=== PATIENT | female | born 1965 | race Caucasian/White ===

== ENCOUNTER 2018-03-21 16:57 | Emergency (ER) | payer MEDICAID ==
[2018-03-21 17:04] VITALS: BP 130/94
--- NOTE | 2018-03-21 18:00 | ER Document Report ---
ED GI/ - General Chief Complaint: Nausea/Vomiting Stated Complaint: NAUSEA/VOMITING Time Seen by Provider: 03/21/18 17:34 Notes: This is a 52-year-old female patient to the emergency department who complains of dysphasia. States that this began around December. Having increasing difficulty swallowing. Was seen at another ER where she had a CT scan and workup performed which she states was unremarkable. Has not seen a specialist but was told that she would likely need an endoscopy. Presents here today for an endoscopy. States that she is able to tolerate liquids but having a hard time with solid foods. Patient has been smoking since she was 12. No other issues at this time. Denies any weight loss or weight gain. Denies any foreign body sensation in her throat at this time. - HPI Timing/Duration: Gradual - Related Data Allergies/Adverse Reactions: No Known Allergies Allergy (Unverified 03/21/18 16:59) Past Medical History - General Information source: Patient - Social History Smoking Status: Current Every Day Smoker Cigarette use (# per day): Yes Frequency of alcohol use: None Drug Abuse: None Lives with: Family Family History: Reviewed & Not Pertinent Patient has suicidal ideation: No Patient has homicidal ideation: No Pulmonary Medical History: Reports: Hx COPD Renal/ Medical History: Denies: Hx Peritoneal Dialysis Psychiatric Medical History: Reports: Hx Depression Review of Systems - Review of Systems Notes: Constitutional: denies: Chills, Diaphoresis, Fever, Malaise, Weakness EENT: denies: Eye discharge, Blurred vision, Tearing, Double vision, Nose congestion, Nose discharge, Throat swelling, Mouth pain Cardiovascular: denies: Palpitations, Heart racing, Orthopnea, Dyspnea, Chest pain Respiratory: denies: Cough, Hurts to breathe, Wheezing, Shortness of breath Gastrointestinal: denies: Abdominal pain, Diarrhea, Nausea, Vomiting, Black stools, bright red blood in stool. Does state that she has difficulty swallowing at times Genitourinary: denies: Burning, Dysuria, Discharge, Frequency, Flank pain, Hematuria Musculoskeletal: denies: Joint pain, Joint swelling, Muscle pain, Muscle stiffness, back pain Hematologic/Lymphatic: denies: Anemia, Easy bleeding, Easy bruising, Blood clots Neurological/Psychological: denies: Confusion, Dementia, Depression, Loss of consciousness Skin: No lesions, no masses, no skin breakdown, no abscesses Physical Exam - Vital signs Vitals: Temp Pulse Resp BP Pulse Ox 97.9 F 113 H 16 130/94 H 100 03/21/18 17:02 03/21/18 17:02 03/21/18 17:02 03/21/18 17:02 03/21/18 17:02 Interpretation: Normal Notes: Vital signs recorded this tachycardia have her physical exam while auscultating reveals a heart rate approximately 90. - General General appearance: Appears well, Alert - HEENT Head: Normocephalic, Atraumatic Eyes: Normal Pupils: PERRL - Respiratory Respiratory status: No respiratory distress Chest status: Nontender Breath sounds: Normal Chest palpation: Normal - Cardiovascular Rhythm: Regular Heart sounds: Normal auscultation Murmur: No - Abdominal Inspection: Normal Distension: No distension Bowel sounds: Normal Tenderness: Nontender Organomegaly: No organomegaly - Back Back: Normal, Nontender - Extremities General upper extremity: Normal inspection, Nontender, Normal color, Normal ROM , Normal temperature General lower extremity: Normal inspection, Nontender, Normal color, Normal ROM , Normal temperature, Normal weight bearing. No: Jeffrey's sign - Neurological Neuro grossly intact: Yes Cognition: Normal Orientation: AAOx4 Apryl Coma Scale Eye Opening: Spontaneous Apryl Coma Scale Verbal: Oriented Apryl Coma Scale Motor: Obeys Commands Apryl Coma Scale Total: 15 Speech: Normal Motor strength normal: LUE, RUE, LLE, RLE Sensory: Normal - Psychological Associated symptoms: Normal affect, Normal mood - Skin Skin Temperature: Warm Skin Moisture: Dry Skin Color: Normal Course - Re-evaluation Re-evalutation: 03/21/18 17:57 Symptoms have been present for several months. Obviously patient is tolerating p.o. at this time. We will give her follow-up information for general surgery as well as gastroenterology. Encouraged her if symptoms get worse to return during business hours so that we can get a barium swallow on her and possible consult. Patient is comfortable being discharged at this time and realizes that she may need to return if things get worse. Will discharge at this time in stable condition. - Vital Signs Vital signs: Temp Pulse Resp BP Pulse Ox 97.9 F 113 H 16 130/94 H 100 03/21/18 17:02 03/21/18 17:02 03/21/18 17:02 03/21/18 17:02 03/21/18 17:02 Discharge - Discharge Clinical Impression: Dysphasia Condition: Good Disposition: HOME, SELF-CARE Additional Instructions: You have been diagnosed with dysphasia which is also known as difficulty with swallowing. This condition will require further evaluation and treatment. Continue to drink liquids as this is usually easier to get down then solid foods. Things such as boost, Ensure, milk shakes, applesauce, Jell-O and pudding as well as broth are things you should try at this time. In the event that symptoms are getting worse and you are absolutely unable to keep any liquids down then please return to the emergency department. You have been given follow-up information for general surgeon as well as a installation supervisor. Please make an appointment immediately. Referrals: ELIAS DEWEY MD [ACTIVE STAFF] - Follow up as needed DENAE SAAB MD [ACTIVE STAFF] - 03/24/18
== END 2018-03-21 18:50 | disposition home or self-care (01) ==
LOC: ER 16:57
DX: R47.02 Dysphasia (principal); R13.10 Dysphagia, unspecified; F17.210 Nicotine dependence, cigarettes, uncomplicated
CPT/HCPCS: 99283

== ENCOUNTER 2018-12-04 23:34 | Observation (INO) | payer MEDICAID ==
[2018-12-04] MEDS ORDERED: QUETIAPINE FUMARATE 100 MG TABLET PO ONE (23:58)
[2018-12-04] MEDS ORDERED: DIAZEPAM 5 MG TABLET PO ONE (23:58)
--- NOTE | 2018-12-05 00:24 | ER Document Report ---
ED General - General Stated Complaint: ALTERED MENTAL STATUS Time Seen by Provider: 12/04/18 23:44 Primary Care Provider: LASHELL SANCHEZ MD [Primary Care Provider] - Follow up as needed Notes: Patient is a 53-year-old female who underwent an episode at home where the said he was sent with him and left the room to go get something from different house. He came back and when he came back she was laying in the chair slumped over and her lips were bluish in color. She was somewhat gurgling her speech and he says her face was dropped back. He says is not sure if it is really drooped or slumped however it seems as if it was "abnormal". He says he cannot tell if it was worse on one side versus the other. When paramedics arriv ed the patient was moving everything appropriately however was somewhat confused and not talking. By time the patient arrived to the ED she is awake alert and answering all questions appropriately moving all extremities without difficulty. Patient's says that she has been out of her psychiatric medications for 2 weeks. He says in the last week is noticed that she is been a little more q uiet and just not herself. Medications that she typically takes are Chlorpromazine 100mg daily, diazepam 10mg TID, Benotropine bid, buspirone 10mg daily, seroquel 400mg QHS. - Related Data Allergies/Adverse Reactions: No Known Allergies Allergy (Unverified 03/21/18 16:59) Past Medical History - Social History Smoking Status: Never Smoker Frequency of alcohol use: None Drug Abuse: None Family History: Reviewed & Not Pertinent Pulmonary Medical History: Reports: Hx COPD Renal/ Medical History: Denies: Hx Peritoneal Dialysis Psychiatric Medical History: Reports: Hx Depression Review of Systems - Review of Systems Notes: My Normal Review Basic REVIEW OF SYSTEMS: CONSTITUTIONAL : Denies fever, chills, or sweats. Denies recent illness. EENT: Denies eye, ear, throat, or mouth pain or symptoms. Denies nasal or sinus congestion. CARDIOVASCULAR: Denies chest pain. RESPIRATORY: Denies cough, cold, or chest congestion. Denies shortness of breath, difficulty breathing, or wheezing. GASTROINTESTINAL: Denies abdominal pain. Denies nausea, vomiting, or diarrhea. GENITOURINARY: Denies difficulty urinating, painful urination, burning, frequency, or blood in urine. MUSCULOSKELETAL: Denies neck or back pain or joint pain or swelling. SKIN: Denies rash or skin lesions. NEUROLOGICAL: episode of altered mental status and poorly responsiveness. PSYCHIATRIC: History of schizophrenia. ALL OTHER SYSTEMS REVIEWED AND NEGATIVE. Physical Exam - Notes Notes: General Appearance: Well nourished, alert, cooperative, no acute distress, no obvious discomfort. Vitals: reviewed, See vital signs table. Eyes: PERRL, EOMI, Conjuctiva clear Mouth: No decreasd moisture Throat: No tonsillar inflammation, No airway obstruction, No lymphadenopathy Neck: Supple, no neck tenderness, No thyromegaly Lungs: No wheezing, No rales, No rhonci, No accessory muscle use, good air exchange bilaterally. Heart: Normal rate, Regular rythm, No murmur, no rub Abdomen: Normal BS, soft, No rigidity, No abdominal tenderness, No guarding, no rebound, no abdominal masses, no organomegaly Extremities: strength 5/5 in all extremities, good pulses in all extremities, no swelling or tenderness in the extremities, no edema. Skin: warm, dry, appropriate color, no rash Neuro: speech clear, oriented x 3, normal affect, responds appropriately to questions. Cranial nerves II through XII are intact. Distal sensation intact. Patient was all extremities without difficulty. She is able to lift both arms off the bed holding against gravity for more than 5 seconds without difficulty. She is able to lift her legs off the bed and hold them against gravity than 5 seconds without difficulty. Normal coordination of movements. Answers all questions appropriately. Course - Re-evaluation Re-evalutation: 12/05/18 01:18 Nurse informed that the patient is now not talking. I into the room. She is somewhat slurring her words when she tries to talk and then will fall asleep. She does still have symmetric facial movement. She still able to lift arms and legs off the bed. She does not have any focal weakness. This was 30 minutes after she received the Valium. is adamant that this was a dose that she was on for the last time she had this Valium dose was 2 weeks ago. Signs are stable. We will continue to monitor her to watch for any progression or worsening. 12/05/18 02:11 Patient is still at the state where she will not really talk or communicate. She still follows commands but is somnolent. It would be odd for this to be completely related to Valium being that she is typically on 10 mg 3 times a day and she is also typically on other medications that are sedating in conjunction with the valium. I sat down and talked with her and told him that stroke is in the differential. I told him I am not convinced that she is having a stroke being that she does not have any other focal neurologic deficits. She still is able to raise her arms and raise her legs off the bed without difficulty. She still seems to understand and follow commands however she is somnolent in appearance. I informed him anytime we consider stroke we do have to consider thrombolytic therapy. I did explain to him what thrombolytic therapy is and did show him the AA diagram showing the outcome with thrombolytic therapy including the percentage of people that get relief of the symptoms as well as the possibility of bleeding on the brain. Patient says at this time he would rather not give that medication being that he does not want to take the chance of her receiving a medication that can potentially cause her harm especially when we do not know for sure if this is a stroke or not. We therefore will hold off on any thrombolytic therapy. We will admit the patient for observation and do further work-up. I did discuss the case with Dr. Jackson, hospitalist, who agrees to evaluate the patient for admission. She has an NIH stroke scale is 6 based on her mental status and inability to speak. 12/05/18 02:18 - Laboratory Result Diagrams: 12/05/18 00:26 12/05/18 00:26 Laboratory results interpreted by me: 12/05/18 12/05/18 00:26 00:26 RDW 17.6 H Plt Count 491 H Sodium 134.2 L Potassium 3.4 L BUN 6 L - EKG Interpretation by Me Additional EKG results interpreted by me: 12/05/18 00:23 EKG is reviewed and interpreted by me. EKG shows sinus rhythm with rate of [address] segment elevation or depression. No ischemic T wave inversions. FL interval, QRS duration, QT intervals are within normal range. No old EKG available for comparison. 12/05/18 00:24 Discharge - Discharge Clinical Impression: Altered mental status Qualifiers: Altered mental status type: unspecified Qualified Code(s): R41.82 - Altered mental status, unspecified Condition: Stable Disposition: ADMITTED OBSERVATION Admitting Provider: Manuel (Hospitalist) Unit Admitted: [facility] Referrals: LASHELL SANCHEZ MD [Primary Care Provider] - Follow up as needed
[2018-12-05 00:41] LABS: ABSOLUTE LYMPHOCYTES (AUTO) 1.4 10^3/uL (0.5-4.7); ABSOLUTE MONOCYTES (AUTO) 0.8 10^3/uL (0.1-1.4); ABSOLUTE NEUT (AUTO) 5.2 10^3/uL (1.7-8.2); BASOPHILS % (AUTO) 0.6 % (0-2); EOSINOPHILS % (AUTO) 0.6 % (0-6); HEMATOCRIT 39.5 % (36.0-47.0); HEMOGLOBIN 13.1 g/dL (12.0-15.5); LYMPHOCYTES % (AUTO) 19.2 % (13-45); MEAN CORPUSCULAR HEMOGLOBIN 28.3 pg (27.0-33.4); MEAN CORPUSCULAR HGB CONC 33.2 g/dL (32.0-36.0); MEAN CORPUSCULAR VOLUME 85 fl (80-97); MONOCYTES % (AUTO) 10.3 % (3-13); PLATELET COUNT 491 10^3/uL (150-450); RED BLOOD COUNT 4.64 10^6/uL (3.72-5.28); RED CELL DISTRIBUTION WIDTH 17.6 % (11.5-14.0); SEGMENTED NEUTROPHILS % (AUTO) 69.3 % (42-78); TOTAL CELLS COUNTED % (AUTO) 100 %; WHITE BLOOD COUNT 7.5 10^3/uL (4.0-10.5)
[2018-12-05 01:00] LABS: ALANINE AMINOTRANSFERASE 14 U/L (9-52); ALBUMIN 4.2 g/dL (3.5-5.0); ALKALINE PHOSPHATASE 66 U/L (38-126); ANION GAP 8 (5-19); ASPARTATE AMINO TRANSFERASE 15 U/L (14-36); BILIRUBIN,DIRECT 0.2 mg/dL (0.0-0.4); BILIRUBIN,TOTAL 0.3 mg/dL (0.2-1.3); BLOOD UREA NITROGEN 6 mg/dL (7-20); CALCIUM 9.5 mg/dL (8.4-10.2); CARBON DIOXIDE 27 mmol/L (22-30); CHLORIDE 99 mmol/L (98-107); GLUCOSE 106 mg/dL (75-110); POTASSIUM 3.4 mmol/L (3.6-5.0); TOTAL PROTEIN 6.8 g/dL (6.3-8.2)
--- NOTE | 2018-12-05 01:13 | RADIOLOGY REPORT (SQ) ---
CT HEAD WITHOUT IV CONTRAST EXAM DATE: 12/04/2018 11:57 PM CDT HISTORY: Episode of altered mental status. COMPARISON: None. TECHNIQUE: CT scan of the brain without IV contrast. This exam was performed according to our departmental dose-optimization program, which includes automated exposure control, adjustment of the mA and/or kV according to patient size and/or use of iterative reconstruction technique. FINDINGS: The ventricles, cisterns, and sulci are age-appropriate. No evidence of acute infarction, intracranial hemorrhage, extra-axial fluid collection, or midline shift. No air-fluid levels are seen in the paranasal sinuses to suggest acute sinusitis. No depressed skull fracture. IMPRESSION: No acute intracranial findings.
[2018-12-05] MEDS ORDERED: DOCUSATE SODIUM 100 MG CAPSULE PO PRN (02:11)
--- NOTE | 2018-12-05 02:18 | ER Document Report ---
ED NIH Stroke Scale - NIH Stroke Scale *: 1. NIH scale should be completed with appropriate accompanying assessment tools. *: 2. The NIH should reflect what the patient is capable of doing and should not be coached by the clinician. 1a. Level of Consciousness: 0=Alert;keenly responsive -: 1=Drowsy -: 2=Obtunded -: 3=Coma/unresponsive or reflex to noxious stimuli. 1a. Responses: 1 1b. Orientation Questions: a. What month is it? -: b. How old are you? -: 0=Answers both questions correctly. -: 1=Answers one question correctly or patient is intubated or has orotracheal trauma. -: 2=Answers neither question correctly. 1b. Responses: 1 1c. Response to commands: a. Open and close eyes? -: b. Advanced Practice Provider and release hand? -: Credit is given despite weakness. Demonstration of task is permitted. Substitute command if hands cannot be used. -: 0=Performs both tasks correctly -: 1=Performs one task correctly -: 2=Performs neither task correctly 1c. Responses: 0 2. Gaze: Establish eye contact and instruct patient to "Follow my finger" -: 0=Normal -: 1=Partial gaze palsy. Gaze is abnormal in one or both eyes, but where forced deviation or total gaze paresis is not present. -: 2=Forced deviation or total gaze paresis. 2. Responses: 0 3. Visual Santos: Sees fingers in all four quadrants. -: 0=No visual loss. -: 1=Partial hemianopsia. -: 2=Complete hemianopsia. -: 3=Bilateral hemianopsia (including Cortical blindness) 3. Responses: 0 4. Facial Movement: Instruct patient to: -: a. Show me your teeth -: b. Raise your eyebrows -: c. Close your eyes -: d. Smile -: 0=Normal symmetrical movement -: 1=Minor paralysis (flattened nasolabial fold, asymmetry on smiling). -: 2=Partial paralysis (total or near total paralysis of lower face). -: 3=Complete paralysis of upper and lower face 4. Responses: 0 5. Motor functions (left arm): Alternate sides and extend each arm with palms down (90 degrees if sitting or 45 degrees for supine). -: 0=No drift;limb holds for full 10 seconds. -: 1=Drift; limb holds but drifts down before full 10 seconds, but does not hit bed. -: 2=Some effort against gravity; limb cannot get to or maintain position. -: 3=No effort against gravity; limb falls. -: 4=No movement. -: UN=Amputation, joint fusion, explain in comments. 5. Responses (left arm): 0 5. Motor Functions (right arm): Alternate sides and extend each arm with palms down (90 degrees if sitting or 45 degrees for supine). -: 0=No drift;limb holds for full 10 seconds. -: 1=Drift; limb holds but drifts down before full 10 seconds, but does not hit bed. -: 2=Some effort against gravity; limb cannot get to or maintain position. -: 3=No effort against gravity; limb falls. -: 4=No movement. -: UN=Amputation, joint fusion, explain in comments. 5. Responses (right arm): 0 6. Motor Functions (left leg): With patient lying supine, alternate sides and extend each leg (30 degrees always while supine). -: 0=No drift, leg holds position for full 5 seconds -: 1=Drift; leg falls before full 5 seconds but does not hit bed. -: 2=Some effort against gravity, leg falls to bed but some effort against gravity. -: 3=No effort against gravity, leg falls to bed immediately. -: 4=No movement. -: UN=Amputation, joint fusion; explain in comments. 6. Responses (left leg): 0 6. Motor Functions (right leg): With patient lying supine, alternate sides and extend each leg (30 degrees always while supine). -: 0=No drift, leg holds position for full 5 seconds -: 1=Drift; leg falls before full 5 seconds but does not hit bed. -: 2=Some effort against gravity, leg falls to bed but some effort against gravity. -: 3=No effort against gravity, leg falls to bed immediately. -: 4=No movement. -: UN=Amputation, joint fusion; explain in comments. 6. Responses (right leg): 0 7. Limb Ataxia: With eyes open instruct patient to: -: a. "Touch your finger to your nose". -: b. "Touch your heel to your buck" -: 0=Absent -: 1=Present in one limb. -: 2=Present in two limbs. -: UN=Amputation or joint fusion; explain in comments. 7. Responses: 0 8. Sensory: Test sensation using pinprick or noxious stimuli. Test as many body parts as possible. -: 0=Normal;no sensory loss -: 1=Mile to moderate sensory loss (patient feels pin prick but is less sharp on affected side). -: 2=Severe or total sensory loss. 8. Responses: 0 9. Best Language: Instruct patient to: -: a. "Describe what you see in this picture." -: b. "Name the items in this picture." -: c. "Read these sentences." -: 0=No aphasia, normal -: 1=Mild to moderate aphasia. -: 2=Severe aphasia -: 3=Mute, global aphasia, no usable speech or auditory comprehension. 9. Responses: 2 10. Articulation, Dysarthia: Instruct patient to: -: "Read these words" or "Repeat these words" -: 0=Normal -: 1=Mild to moderate; patient may slur some words but can be understood without difficulty. -: 2=Severe; patients speech so slurred as to be unintelligible in the absence of dysphasia. -: UN=Intubated or other physical barrier, explain in comments. 10. Responses: 2 11. Extinction or inattention: 0=No abnormality -: 1= Visual, tactile, auditory, spatial, or personal inattention or extinction to bilateral simulation in one or the sensory modalities. -: 2=Profound donovan-inattention or donovan-inattention to more than one modality; does not recognize own hand. 11. Responses: 0 Total Score: 6
[2018-12-05] MEDS ORDERED: ASPIRIN 325 MG TABLET, ENT COATED PO ONE (02:45)
[2018-12-05] MEDS ORDERED: ATORVASTATIN CALCIUM 40 MG TABLET PO ONE (02:45)
[2018-12-05] MEDS: POTASSI CL 20 MEQ/50 ML RIDER 20 MEQ/50 ML RTUPB IV SCH ×2 (03:09→05:17)
[2018-12-05] MEDS: HEPARIN SOD (PORCINE) 5,000 UNIT/ML 1 ML VIAL SUBCUT SCH ×3 (05:18→21:15)
--- NOTE | 2018-12-05 06:50 | PDOC H&P ---
History of Present Illness Admission Date/PCP: 12/05/18 03:07 LASHELL SANCHEZ MD Patient complains of: Altered mental status History of Present Illness: KUN LEONE is a 53 year old female with an unclear past medical history thought to include COPD, tobacco, bipolar depression who was discharged from [place] October 2018 without medications for at least 14 days. History is obtained by emergency room provider and records as patient is nonverbal and fami ly is no longer at bedside. Patient was noted by her spouse to be poorly responsive, nonverbal and cyanotic initiating 2 minutes of CPR, EMS reports the patient initially combative but persistently nonverbal and appeared confused. In the emergency room she is awake and alert and intermittently answering questions and following commands. Patient receives Seroquel, Valium and referred to the hospitalist for admission for concern of CVA versus TIA with aphasia Past Medical History Pulmonary Medical History: Reports: Chronic Obstructive Pulmonary Disease (COPD) Psychiatric Medical History: Reports: Depression Past Surgical History Past Surgical History: Reports: None Social History Information Source: [facility] Records Lives with: Spouse/Significant other Smoking Status: Current Every Day Smoker Cigarettes Packs Per Day: 1 Number of Years Smokin Frequency of Alcohol Use: Occasional Hx Recreational Drug Use: No Hx Prescription Drug Abuse: No - Advance Directive Resuscitation Status: Full Code Family History Family History: Hypertension Parental Family History Reviewed: No - Unobtainable Children Family History Reviewed: No - Unobtainable Sibling(s) Family History Reviewed.: No - Unobtainable Medication/Allergy Allergies/Adverse Reactions: No Known Allergies Allergy (Unverified 03/21/18 16:59) Review of Systems ROS unobtainable: Due to mental status Physical Exam Vital Signs: Temp Pulse Resp BP Pulse Ox 97.3 F 89 18 147/97 H 99 12/05/18 05:12 12/05/18 06:00 12/05/18 06:00 12/05/18 06:00 12/05/18 06:00 Intake & Output 12/03/18 12/04/18 12/05/18 11:59 11:59 11:59 Intake Total 50 Output Total 0 Balance 50 Weight 61 kg General appearance: PRESENT: no acute distress, cooperative, disheveled, well- developed, well-nourished Head exam: PRESENT: atraumatic, normocephalic Eye exam: PRESENT: conjunctiva pink, EOMI, PERRLA. ABSENT: scleral icterus Ear exam: PRESENT: normal external ear exam Mouth exam: PRESENT: moist, tongue midline Neck exam: ABSENT: carotid bruit, JVD, lymphadenopathy, thyromegaly Respiratory exam: PRESENT: clear to auscultation jamrai. ABSENT: rales, rhonchi, wheezes Cardiovascular exam: PRESENT: RRR. ABSENT: diastolic murmur, rubs, systolic murmur Pulses: PRESENT: normal dorsalis pedis pul Vascular exam: PRESENT: normal capillary refill GI/Abdominal exam: PRESENT: normal bowel sounds, soft. ABSENT: distended, guarding, mass, organolmegaly, rebound, tenderness Rectal exam: PRESENT: deferred Extremities exam: PRESENT: full ROM. ABSENT: calf tenderness, clubbing, pedal edema Neurological exam: PRESENT: alert, awake, oriented to person, oriented to situation, CN II-XII grossly intact, aphasic. ABSENT: motor sensory deficit Psychiatric exam: PRESENT: flat affect, unusual affect Focused psych exam: PRESENT: other Skin exam: PRESENT: dry, intact, warm. ABSENT: cyanosis, rash Results Laboratory Results: 12/05/18 00:26 12/05/18 00:26 12/05/18 12/05/18 12/05/18 00:26 00:26 00:26 WBC 7.5 RBC 4.64 Hgb 13.1 Hct 39.5 MCV 85 MCH 28.3 MCHC 33.2 RDW 17.6 H Plt Count 491 H Seg Neutrophils % 69.3 Lymphocytes % 19.2 Monocytes % 10.3 Eosinophils % 0.6 Basophils % 0.6 Absolute Neutrophils 5.2 Absolute Lymphocytes 1.4 Absolute Monocytes 0.8 Absolute Eosinophils 0.0 Absolute Basophils 0.0 Sodium 134.2 L Potassium 3.4 L Chloride 99 Carbon Dioxide 27 Anion Gap 8 BUN 6 L Creatinine 0.55 Est GFR ( Amer) > 60 Est GFR (Non-Af Amer) > 60 Glucose 106 Calcium 9.5 Magnesium 1.9 Total Bilirubin 0.3 AST 15 ALT 14 Alkaline Phosphatase 66 Total Protein 6.8 Albumin 4.2 TSH 12/05/18 00:26 WBC RBC Hgb Hct MCV MCH MCHC RDW Plt Count Seg Neutrophils % Lymphocytes % Monocytes % Eosinophils % Basophils % Absolute Neutrophils Absolute Lymphocytes Absolute Monocytes Absolute Eosinophils Absolute Basophils Sodium Potassium Chloride Carbon Dioxide Anion Gap BUN Creatinine Est GFR ( Amer) Est GFR (Non-Af Amer) Glucose Calcium Magnesium Total Bilirubin AST ALT Alkaline Phosphatase Total Protein Albumin TSH 2.08 12/05/18 00:26 Troponin I < 0.012 Impressions: Head CT 12/04/18 23:57 IMPRESSION: No acute intracranial findings. Assessment and Plan - Diagnosis (1) Aphasia Is this a current diagnosis for this admission?: Yes Plan: Likely secondary to psychiatric decompensation with medication noncompliance. H owever no improvement with trial of home medications, CVA care set deployed. (2) Altered mental status Qualifiers: Altered mental status type: unspecified Qualified Code(s): R41.82 - Altered mental status, unspecified Is this a current diagnosis for this admission?: Yes Plan: Please see #1, follow-up TSH, urine drug screen, mental health consult (3) Hypokalemia Is this a current diagnosis for this admission?: Yes Plan: Potassium repletion follow-up magnesium level. - Time Time Spent with patient: 25-34 minutes - Inpatient Certification Medical Necessity: Need Close Monitoring Due to Risk of Patient Decompensation
[2018-12-05 07:59] LABS: ABSOLUTE BASOPHILS # (AUTO) 0.1 10^3/uL (0.0-0.2); ABSOLUTE EOSINOPHILS # (AUTO) 0.1 10^3/uL (0.0-0.6); ABSOLUTE LYMPHOCYTES (AUTO) 2.3 10^3/uL (0.5-4.7); ABSOLUTE MONOCYTES (AUTO) 0.8 10^3/uL (0.1-1.4); ABSOLUTE NEUT (AUTO) 5.6 10^3/uL (1.7-8.2); BASOPHILS % (AUTO) 0.6 % (0-2); EOSINOPHILS % (AUTO) 1.4 % (0-6); HEMATOCRIT 40.1 % (36.0-47.0); HEMOGLOBIN 13.1 g/dL (12.0-15.5); LYMPHOCYTES % (AUTO) 25.7 % (13-45); MEAN CORPUSCULAR HEMOGLOBIN 28.1 pg (27.0-33.4); MEAN CORPUSCULAR HGB CONC 32.7 g/dL (32.0-36.0); MEAN CORPUSCULAR VOLUME 86 fl (80-97); MONOCYTES % (AUTO) 9.2 % (3-13); PLATELET COUNT 391 10^3/uL (150-450); RED BLOOD COUNT 4.66 10^6/uL (3.72-5.28); RED CELL DISTRIBUTION WIDTH 17.6 % (11.5-14.0); SEGMENTED NEUTROPHILS % (AUTO) 63.1 % (42-78); TOTAL CELLS COUNTED % (AUTO) 100 %; WHITE BLOOD COUNT 8.8 10^3/uL (4.0-10.5)
[2018-12-05] MEDS: NICOTINE 21 MG/24 HR PATCH.TD24 TD SCH (10:11)
--- NOTE | 2018-12-05 12:21 | RADIOLOGY REPORT (SQ) ---
EXAM DESCRIPTION: CAROTID DOPPLER COMPLETED DATE/TIME: 12/05/2018 11:58 am REASON FOR STUDY: tia COMPARISON: None. TECHNIQUE: Grayscale ultrasound, Doppler velocity and spectra, and color Doppler images acquired of the extra-cranial carotid and vertebral arteries. Images stored on PACS. LIMITATIONS: None. FINDINGS: RIGHT CAROTID CCA Velocities: Within normal limits. ICA Velocities Peak systolic 0.44 m/s. End diastolic 0.18 m/s. Proximal ICA/CCA peak systolic ratio 1.35. Spectra normal. No significant plaque. LEFT CAROTID CCA Velocities: Within normal limits. ICA Velocities Peak systolic 0.44 m/s. End diastolic 0.20 m/s. Proximal ICA/CCA peak systolic ratio 1.83. Plaque involving the bifurcation VERTEBRAL ARTERIES: Antegrade flow. Normal waveforms. SUBCLAVIAN ARTERIES: No finding. OTHER: No other significant finding. IMPRESSION: NO HEMODYNAMICALLY SIGNIFICANT STENOSIS. COMMENT: Quality ID #[id number]: Velocity criteria are extrapolated from the diameter data as defined by t he Society of Radiologists in Ultrasound Consensus Conference. Radiology 2003: 229; 340-346. TECHNICAL DOCUMENTATION: JOB ID: [id number] [employer]- All Rights Reserved Reading location - IP/workstation name: [email or web address]
--- NOTE | 2018-12-05 13:42 | RADIOLOGY REPORT (SQ) ---
EXAM DESCRIPTION: MRI HEAD WITHOUT COMPLETED DATE/TIME: 12/05/2018 11:31 am REASON FOR STUDY: tia COMPARISON: CT brain 12/05/2018 TECHNIQUE: Multiplanar imaging includes non-contrasted T1, T2, FLAIR, and diffusion with ADC map seq uences. Images stored on PACS. LIMITATIONS: None. FINDINGS: ANATOMY: No anomalies. Normal vascular flow voids. Pituitary fossa normal. CSF SPACES: Normal in size and contour. No hemorrhage. CEREBRUM: Sulci and gyri normal in size and contour. Normal white matter signal on FLAIR imaging. No evidence of hemorrhage, mass, or extraaxial fluid collection. POSTERIOR FOSSA: No signal alteration. No hemorrhage. No edema, masses or mass effect. Internal ariel tory canals, cerebello-pontine angles, mastoids normal. DIFFUSION IMAGING: Negative for acute or sub-acute infarction. ORBITS: No masses. Globes normal. PARANASAL SINUSES: No fluid levels. Mucosa normal. OTHER: No other significant finding. IMPRESSION: NORMAL MRI OF THE BRAIN WITHOUT INTRAVENOUS GADOLINIUM CONTRAST. EVIDENCE OF ACUTE STROKE: NO. TECHNICAL DOCUMENTATION: JOB ID: [id number] [employer]- All Rights Reserved Reading location - IP/workstation name: [email or web address]
--- NOTE | 2018-12-05 14:34 | EKG REPORT ---
SEVERITY:- ABNORMAL ECG - SINUS RHYTHM MICHAEL, CONSIDER BIATRIAL ABNORMALITIES : Confirmed by: Katherine Boykin MD 05-Dec-2018 14:33:28
[2018-12-05] MEDS ORDERED: POTASSIUM CHLORIDE 10 MEQ CAPSULE.ER PO ONE (18:00)
[2018-12-05] MEDS: NORMAL SALINE 1000 ML 1,000 ML IV PRN (18:53)
[2018-12-05] MEDS: DIAZEPAM 5 MG TABLET PO PRN (21:15)
[2018-12-05] MEDS ORDERED: QUETIAPINE FUMARATE 100 MG TABLET PO SCH (22:00)
[2018-12-05] MEDS ORDERED: ATORVASTATIN CALCIUM 40 MG TABLET PO SCH (22:00)
[2018-12-06] MEDS: ACETAMINOPHEN 325 MG TABLET PO PRN ×2 (04:20→11:51)
[2018-12-06 04:47] LABS: ABSOLUTE EOSINOPHILS # (AUTO) 0.1 10^3/uL (0.0-0.6); ABSOLUTE LYMPHOCYTES (AUTO) 2.1 10^3/uL (0.5-4.7); ABSOLUTE MONOCYTES (AUTO) 0.4 10^3/uL (0.1-1.4); ABSOLUTE NEUT (AUTO) 1.8 10^3/uL (1.7-8.2); BASOPHILS % (AUTO) 1.1 % (0-2); HEMATOCRIT 36.6 % (36.0-47.0); HEMOGLOBIN 11.9 g/dL (12.0-15.5); LYMPHOCYTES % (AUTO) 47.3 % (13-45); MEAN CORPUSCULAR HEMOGLOBIN 28.1 pg (27.0-33.4); MEAN CORPUSCULAR HGB CONC 32.6 g/dL (32.0-36.0); MEAN CORPUSCULAR VOLUME 86 fl (80-97); MONOCYTES % (AUTO) 9.2 % (3-13); PLATELET COUNT 328 10^3/uL (150-450); RED BLOOD COUNT 4.25 10^6/uL (3.72-5.28); RED CELL DISTRIBUTION WIDTH 17.6 % (11.5-14.0); SEGMENTED NEUTROPHILS % (AUTO) 40.4 % (42-78); TOTAL CELLS COUNTED % (AUTO) 100 %; WHITE BLOOD COUNT 4.5 10^3/uL (4.0-10.5)
[2018-12-06 05:05] LABS: ANION GAP 5 (5-19); BLOOD UREA NITROGEN 12 mg/dL (7-20); CALCIUM 8.9 mg/dL (8.4-10.2); CARBON DIOXIDE 28 mmol/L (22-30); CHLORIDE 108 mmol/L (98-107); GLUCOSE 88 mg/dL (75-110); POTASSIUM 3.7 mmol/L (3.6-5.0); TRIGLYCERIDES 148 mg/dL (<150)
[2018-12-06 05:16] LABS: DIRECT LDL 116 mg/dL (<100)
[2018-12-06] MEDS: HEPARIN SOD (PORCINE) 5,000 UNIT/ML 1 ML VIAL SUBCUT SCH ×2 (05:19→13:15)
[2018-12-06 05:21] LABS: URINE AMPHETAMINES SCREEN NEGATIVE; URINE BARBITURATES SCREEN NEGATIVE; URINE COCAINE SCREEN NEGATIVE; URINE METHADONE SCREEN NEGATIVE; URINE PHENCYCLIDINE SCREEN NEGATIVE
[2018-12-06 05:23] LABS: URINE MARIJUANA (THC) SCREEN NEGATIVE
[2018-12-06 05:26] LABS: URINE BENZODIAZEPINES SCREEN UNCONFIRMED POSITIVE
[2018-12-06] MEDS: DIAZEPAM 5 MG TABLET PO PRN (08:05)
[2018-12-06] MEDS ORDERED: GABAPENTIN 300 MG CAPSULE PO ONE (09:00)
[2018-12-06] MEDS ORDERED: ASPIRIN 325 MG TABLET, ENT COATED PO SCH (10:00)
[2018-12-06] MEDS: BUSPIRONE HCL 10 MG TABLET PO SCH ×2 (10:01→17:10)
[2018-12-06] MEDS: BENZTROPINE MESYLATE 1 MG TABLET PO SCH ×2 (10:01→17:10)
[2018-12-06] MEDS: NICOTINE 21 MG/24 HR PATCH.TD24 TD SCH (10:04)
[2018-12-06] MEDS: CHLORPROMAZINE HCL 50 MG TABLET PO SCH ×2 (10:04→17:11)
[2018-12-06] MEDS: NORMAL SALINE 1000 ML 1,000 ML IV PRN (13:04)
[2018-12-06 15:53] VITALS: BP 138/86
--- NOTE | 2018-12-06 18:43 | PDOC DISCHARGE SUMMARY ---
General - Admit/Disc Date/PCP Admission Date/Primary Care Provider: 12/05/18 03:07 LASHELL SANCHEZ MD Discharge Date: 12/06/18 - Discharge Diagnosis (1) TIA (transient ischemic attack) Is this a current diagnosis for this admission?: Yes (2) Altered mental status Is this a current diagnosis for this admission?: Yes (3) Aphasia Is this a current diagnosis for this admission?: Yes - Additional Information Resuscitation Status: Full Code Discharge Diet: As Tolerated Discharge Activity: Activity As Tolerated, Balance Activity w/Rest Prescriptions: Aspirin [Aspir-Low] 81 mg PO DAILY #30 tablet. Atorvastatin Calcium [Lipitor 40 mg Tablet] 40 mg PO QHS #30 tablet Benztropine Mesylate [Cogentin 1 mg Tablet] 1 tab PO BID #60 tablet Chlorpromazine HCl [Thorazine 50 mg Tablet] 50 mg PO BID #60 tablet Diazepam [Valium 5 mg Tablet] 5 mg PO BIDP PRN #10 tablet PRN Reason: INCREASED ANXIOUSNESS Quetiapine Fumarate [Seroquel] 300 mg PO QHS #30 tablet Home Medications: Aspirin [Aspir-Low] 81 mg PO DAILY #30 tablet. 12/06/18 Atorvastatin Calcium [Lipitor 40 mg Tablet] 40 mg PO QHS #30 tablet 12/06/18 Benztropine Mesylate [Cogentin 1 mg Tablet] 1 tab PO BID #60 tablet 12/06/18 Buspirone HCl [Buspar 10 mg Tablet] 10 mg PO BID #60 12/06/18 Chlorpromazine HCl [Thorazine 50 mg Tablet] 50 mg PO BID #60 tablet 12/06/18 Diazepam [Valium 5 mg Tablet] 5 mg PO BIDP PRN #10 tablet 12/06/18 Quetiapine Fumarate [Seroquel] 300 mg PO QHS #30 tablet 12/06/18 History of Present Illness History of Present Illness: Admitting hospitalist's H&P: KUN LEONE is a 53 year old female with an unclear past medical history thought to include COPD, tobacco, bipolar depression who was discharged from [place] October 2018 without medications for at least 14 days. History is obtained by emergency room provider and records as patient is nonverbal and family is no longer at bedside. Patient was noted by her spouse to be poorly responsive, nonverbal and cyanotic initiating 2 minutes of CPR, EMS reports the patient initially combative but persistently nonverbal and appeared confused. In the emergency room she is awake and alert and intermittently answering questions and following commands. Patient receives Ciara Valium and referred to the hospitalist for admission for concern of CVA versus TIA with aphasia Hospital Course Hospital Course: This is a 53-year-old female with past medical history of bipolar disorder who has not been on her previous psych medication regimen who was brought in because of unresponsiveness at home. Patient was admitted for possible TIA. She had an MRI which was normal. Her carotid Dopplers were also negative. Upon encounter a few hours after admis chris, patient was already back to her baseline. She was oriented x4. She has appropriate affect and she tells me that the last woman she remembered is that she was watching TV and suddenly had a difficult time altering words. She said that she was able to understand people in the ER but was not able to find words or not able to verbalize. He does not have any neurologic deficit on day of discharge. She was treated for possible TIA but and was started on aspirin and statin. Psych also saw the patient who recommended continuing her on her previous medications. Physical Exam Vital Signs: Temp Pulse Resp BP Pulse Ox 97.7 F 105 H 18 138/86 H 99 12/06/18 15:24 12/06/18 15:24 12/06/18 15:24 12/06/18 15:24 12/06/18 15:24 Intake & Output 12/05/18 12/06/18 12/07/18 06:59 06:59 06:59 Intake Total 50 610 1149 Output Total 0 300 Balance 50 310 1149 Weight 134 lb 7.712 oz 136 lb 3.931 oz General appearance: PRESENT: no acute distress, well-developed, well-nourished Head exam: PRESENT: atraumatic, normocephalic Eye exam: PRESENT: conjunctiva pink, EOMI, PERRLA. ABSENT: scleral icterus Ear exam: PRESENT: normal external ear exam Mouth exam: PRESENT: moist, tongue midline Neck exam: ABSENT: carotid bruit, JVD, lymphadenopathy, thyromegaly Respiratory exam: PRESENT: clear to auscultation jamari. ABSENT: rales, rhonchi, wheezes Cardiovascular exam: PRESENT: RRR. ABSENT: diastolic murmur, rubs, systolic murmur Pulses: PRESENT: normal dorsalis pedis pul GI/Abdominal exam: PRESENT: normal bowel sounds, soft. ABSENT: distended, g uarding, mass, organolmegaly, rebound, tenderness Rectal exam: PRESENT: deferred Extremities exam: PRESENT: full ROM. ABSENT: calf tenderness, clubbing, pedal edema Neurological exam: PRESENT: alert, awake, oriented to person, oriented to place, oriented to time, oriented to situation, CN II-XII grossly intact. ABSENT: mo tor sensory deficit Results Laboratory Results: 12/06/18 04:16 12/06/18 04:16 12/06/18 12/06/18 04:16 04:16 WBC 4.5 RBC 4.25 Hgb 11.9 L Hct 36.6 MCV 86 MCH 28.1 MCHC 32.6 RDW 17.6 H Plt Count 328 Seg Neutrophils % 40.4 L Lymphocytes % 47.3 H Monocytes % 9.2 Eosinophils % 2.0 Basophils % 1.1 Absolute Neutrophils 1.8 Absolute Lymphocytes 2.1 Absolute Monocytes 0.4 Absolute Eosinophils 0.1 Absolute Basophils 0.0 Sodium 141.2 Potassium 3.7 Chloride 108 H Carbon Dioxide 28 Anion Gap 5 BUN 12 Creatinine 0.63 Est GFR ( Amer) > 60 Est GFR (Non-Af Amer) > 60 Glucose 88 Calcium 8.9 Triglycerides 148 Cholesterol 174.70 LDL Cholesterol Direct 116 H VLDL Cholesterol 30.0 HDL Cholesterol 52 12/05/18 00:26 Troponin I < 0.012 Impressions: Head CT 12/04/18 23:57 IMPRESSION: No acute intracranial findings. Head MRI 12/05/18 00:00 IMPRESSION: NORMAL MRI OF THE BRAIN WITHOUT INTRAVENOUS GADOLINIUM CONTRAST. EVIDENCE OF ACUTE STROKE: NO. Carotid Doppler Study 12/05/18 02:12 IMPRESSION: NO HEMODYNAMICALLY SIGNIFICANT STENOSIS. Qualifiers - * PATIENT BEING DISCHARGED WITH ANY OF THE FOLLOWING DIAGNOSIS: No Acute Heart Failure - Is this a Heart Failure Patient?: No LVEF < 40%?: No- if no continue to question #3 3. Anticoagulant therapy for permanect/persistent/paraoxysmal Afib or Aflutter: N/A
== END 2018-12-06 17:55 | disposition home or self-care (01) ==
LOC: ER 23:34 → EH 12-05 03:07 → 3W 12-05 05:00
PROVIDERS: ADMIT Internal Medicine; ATTEND Internal Medicine
DX: G45.9 Transient cerebral ischemic attack, unspecified (principal); R41.82 Altered mental status, unspecified; R47.01 Aphasia; E87.6 Hypokalemia; R23.0 Cyanosis; F31.9 Bipolar disorder, unspecified; F20.9 Schizophrenia, unspecified; F17.210 Nicotine dependence, cigarettes, uncomplicated; Z79.82 Long term (current) use of aspirin; Z79.899 Other long term (current) drug therapy; Z82.49 Family history of ischemic heart disease and other diseases of the circulatory system; R29.706 NIHSS score 6
CPT/HCPCS: 93005; 99285; 96365; 96366; 36415 ×2; 83735; 84443; 85025 ×2; 80048; 80053; 84484; 80307; 83036; 80061; 93880; 70551; 70450; 93010; G0378 ×3; J3490 ×11; J1644 ×2; J3480; J7030 ×2

== ENCOUNTER 2019-02-25 23:43 | Emergency (ER) | payer MEDICAID ==
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
[2019-02-26 00:31] LABS: ABSOLUTE BASOPHILS # (AUTO) 0.1 10^3/uL (0.0-0.2); ABSOLUTE EOSINOPHILS # (AUTO) 0.1 10^3/uL (0.0-0.6); ABSOLUTE LYMPHOCYTES (AUTO) 2.6 10^3/uL (0.5-4.7); ABSOLUTE MONOCYTES (AUTO) 0.7 10^3/uL (0.1-1.4); ABSOLUTE NEUT (AUTO) 5.5 10^3/uL (1.7-8.2); EOSINOPHILS % (AUTO) 0.9 % (0-6); HEMATOCRIT 48.7 % (36.0-47.0); HEMOGLOBIN 15.9 g/dL (12.0-15.5); LYMPHOCYTES % (AUTO) 28.4 % (13-45); MEAN CORPUSCULAR HEMOGLOBIN 28.5 pg (27.0-33.4); MEAN CORPUSCULAR HGB CONC 32.6 g/dL (32.0-36.0); MEAN CORPUSCULAR VOLUME 88 fl (80-97); MONOCYTES % (AUTO) 7.9 % (3-13); PLATELET COUNT 268 10^3/uL (150-450); RED BLOOD COUNT 5.57 10^6/uL (3.72-5.28); RED CELL DISTRIBUTION WIDTH 18.2 % (11.5-14.0); SEGMENTED NEUTROPHILS % (AUTO) 61.8 % (42-78); TOTAL CELLS COUNTED % (AUTO) 100 %
[2019-02-26 00:49] LABS: ALBUMIN 4.7 g/dL (3.5-5.0); ALKALINE PHOSPHATASE 60 U/L (38-126); ANION GAP 16 (5-19); ASPARTATE AMINO TRANSFERASE 20 U/L (14-36); BILIRUBIN,DIRECT 0.1 mg/dL (0.0-0.4); BILIRUBIN,TOTAL 0.4 mg/dL (0.2-1.3); BLOOD UREA NITROGEN 14 mg/dL (7-20); CALCIUM 9.9 mg/dL (8.4-10.2); CARBON DIOXIDE 24 mmol/L (22-30); CHLORIDE 97 mmol/L (98-107); GLUCOSE 127 mg/dL (75-110); POTASSIUM 3.3 mmol/L (3.6-5.0); TOTAL PROTEIN 7.3 g/dL (6.3-8.2)
[2019-02-26 00:50] LABS: ACETAMINOPHEN < 10 ug/mL (10-30); ALCOHOL < 10 mg/dL (NONE DETECTED)
[2019-02-26 01:02] LABS: SALICYLATE 22.2 mg/dL (2.0-20.0)
[2019-02-26] MEDS ORDERED: NORMAL SALINE 1000 ML 1,000 ML IV ONE (01:18)
[2019-02-26] MEDS ORDERED: POTASSIUM CHLORIDE 10 MEQ CAPSULE.ER PO ONE (01:19)
[2019-02-26] MEDS ORDERED: LORAZEPAM 0.5 MG TABLET PO ONE (01:19)
[2019-02-26] MEDS ORDERED: HALOPERIDOL 5 MG TABLET PO ONE (04:53)
[2019-02-26] MEDS ORDERED: NICOTINE 14 MG/24 HR PATCH.TD24 TD ONE (06:16)
[2019-02-26 06:34] LABS: APPEARANCE,URINE CLOUDY; BILIRUBIN,URINE MODERATE (NEGATIVE); GLUCOSE, URINE NEGATIVE (NEGATIVE); KETONES,URINE 20 mg/dL (NEGATIVE); LEUKOCYTE ESTERASE,URINE NEGATIVE (NEGATIVE); NITRITE,URINE NEGATIVE (NEGATIVE); PROTEIN,URINE 100 mg/dL (NEGATIVE); URINE SPECIFIC GRAVITY 1.036
[2019-02-26 06:35] LABS: COLOR,URINE BROWN
[2019-02-26 06:46] LABS: URINE AMPHETAMINES SCREEN NEGATIVE; URINE BARBITURATES SCREEN NEGATIVE; URINE BENZODIAZEPINES SCREEN NEGATIVE; URINE COCAINE SCREEN NEGATIVE; URINE MARIJUANA (THC) SCREEN NEGATIVE; URINE METHADONE SCREEN NEGATIVE; URINE PHENCYCLIDINE SCREEN NEGATIVE
[2019-02-26] MEDS ORDERED: ONDANSETRON 4 MG TAB.RAPDIS PO ONE ×2 (09:47→13:55)
[2019-02-26] MEDS ORDERED: OLANZAPINE 5 MG TABLET PO ONE (14:37)
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
[2019-02-26 17:29] VITALS: BP 115/70
--- NOTE | 2019-02-26 20:19 | EKG REPORT ---
SEVERITY:- ABNORMAL ECG - SINUS TACHYCARDIA RIGHT ATRIAL ABNORMALITY : Confirmed by: Katherine Boykin MD 26-Feb-2019 20:18:53
== END 2019-02-26 17:45 | disposition other institution (70) ==
LOC: ER 23:43
DX: Z04.6 Encounter for general psychiatric examination, requested by authority (principal); F20.9 Schizophrenia, unspecified; Z91.14 Patient's other noncompliance with medication regimen; E87.6 Hypokalemia; F41.9 Anxiety disorder, unspecified; M54.9 Dorsalgia, unspecified; M79.606 Pain in leg, unspecified; Z79.899 Other long term (current) drug therapy; R89.8 Other abnormal findings in specimens from other organs, systems and tissues; R45.6 Violent behavior; F17.200 Nicotine dependence, unspecified, uncomplicated; J44.9 Chronic obstructive pulmonary disease, unspecified; R00.0 Tachycardia, unspecified
CPT/HCPCS: 93005; 99285; 96360; 36415; 80307 ×4; 83735; 85025; 80053; 81001; 93010; S0119; J3490 ×3; J7030

== ENCOUNTER 2019-04-28 16:51 | Emergency (ER) | payer MEDICAID ==
[2019-04-28 17:00] VITALS: BP 132/93
[2019-04-28] MEDS ORDERED: KETOROLAC TROMETHAMINE 60 MG/2 ML SDV IM ONE (17:36)
[2019-04-28] MEDS ORDERED: IPRATROPIUM/ALBUTEROL 0.5-2.5 MG/3 ML AMPUL NEB ONE (17:36)
--- NOTE | 2019-04-28 17:37 | ER Document Report ---
ED Flu Like - General Chief Complaint: Pain All Over Stated Complaint: FLU SYMPTOMS Time Seen by Provider: 04/28/19 17:32 Primary Care Provider: [facility] [Provider Group] - Follow up in 1 week TRAVEL OUTSIDE OF THE U.S. IN LAST 30 DAYS: No - HPI Notes: 54-year-old female to the emergency department with complaints of fever, cough, congestion, body aches for the past 2 to 3 days. She states that her temp has been 100.9. She states she has a history of bronchitis and when she gets that she gets very sick. She states that she wanted to be seen so that she could avoid getting bronchitis. She is a smoker. She denies any chest pain, nausea, vomiting, diarrhea. She did not get a flu shot this season. - Related Data Allergies/Adverse Reactions: No Known Allergies Allergy (Verified 04/28/19 17:25) Home Medications: pt states she has been using her husbands inhaler. Past Medical History - Social History Smoking Status: Current Every Day Smoker Chew tobacco use (# tins/day): No Frequency of alcohol use: None Drug Abuse: None Family History: Hypertension Patient has suicidal ideation: No Patient has homicidal ideation: No Pulmonary Medical History: Reports: Hx COPD Renal/ Medical History: Denies: Hx Peritoneal Dialysis Psychiatric Medical History: Reports: Hx Bipolar Disorder, Hx Depression, Hx Schizophrenia Past Surgical History: Reports: Hx Breast Surgery Review of Systems - Review of Systems Constitutional: Chills. denies: Fever EENT: Nose congestion, Throat pain Cardiovascular: denies: Chest pain, Palpitations, Dyspnea, Syncope Respiratory: Cough, Wheezing Gastrointestinal: denies: Abdominal pain, Diarrhea, Nausea, Vomiting Genitourinary: No symptoms reported Female Genitourinary: No symptoms reported Musculoskeletal: Muscle pain - body aches Skin: No symptoms reported Hematologic/Lymphatic: No symptoms reported Neurological/Psychological: No symptoms reported -: Yes All other systems reviewed and negative Physical Exam - Vital signs Vitals: Temp Pulse Resp BP Pulse Ox 98.8 F 110 H 16 132/93 H 97 04/28/19 16:59 04/28/19 16:59 04/28/19 16:59 04/28/19 16:59 04/28/19 16:59 Interpretation: Normal - General General appearance: Appears well, Alert Notes: appears older than stated age. Smoker's voice - HEENT Head: Normocephalic Eyes: Normal Pupils: PERRL Ears: Normal External canal: Normal Tympanic membrane: Normal Sinus: Normal Nasal: Clear rhinorrhea Mouth/Lips: Normal Mucous membranes: Normal Pharynx: Post nasal drainage. No: Exudate, Peritonsillar abscess, Retropharyngeal abscess, Tonsillar hypertrophy, Uvular edema, Potential airway comprom. Neck: Normal, Supple. No: Lymphadenopathy, Meningismus - Respiratory Respiratory status: No respiratory distress. No: Retractions, Tachypnea, Tripod position Chest status: Nontender. No: Accessory muscle use Breath sounds: Decreased air movement, Nonproductive cough. No: Rales, Rhonchi, Wheezing Chest palpation: Normal Notes: decreased breath sounds throughout with hacking cough. No marycarmen Wheezing. - Cardiovascular Rhythm: Regular Heart sounds: Normal auscultation Murmur: No - Abdominal Inspection: Normal Distension: No distension Bowel sounds: Normal Tenderness: Nontender Organomegaly: No organomegaly - Back Back: Normal, Nontender - Neurological Neuro grossly intact: Yes Cognition: Normal Orientation: AAOx4 Apryl Coma Scale Eye Opening: Spontaneous [place] Coma Scale Verbal: Oriented [place] Coma Scale Motor: Obeys Commands [place] Coma Scale Total: 15 Speech: Normal Cranial nerves: Normal Cerebellar coordination: Normal Motor strength normal: LUE, RUE, LLE, RLE Additional motor exam normals: Equal ledge man Sensory: Normal - Psychological Associated symptoms: Normal affect, Normal mood - Skin Skin Temperature: Warm Skin Moisture: Dry Skin Color: Normal Course - Re-evaluation Re-evalutation: Impression: Flu like syndrome. Negative for flu A and B. Will send home with cough medicine and symptomatic relief. Encouraged rest and pushing fluids. gave strict return precautions. Patient feels better after breathing treatment and toradol injection. States her body aches are significantly better and she feels like she can get a better breath. - Vital Signs Vital signs: Temp Pulse Resp BP Pulse Ox 98.8 F 110 H 16 132/93 H 97 04/28/19 16:59 04/28/19 16:59 04/28/19 16:59 04/28/19 16:59 04/28/19 16:59 Discharge - Discharge Clinical Impression: Flu-like symptoms, Cough, Generalized body aches Condition: Stable Disposition: HOME, SELF-CARE Instructions: Viral Syndrome ([facility]) Additional Instructions: PUSH FLUIDS. REST IN THE BED. RETURN IF WORSENING SYMPTOMS. TAKE MEDICINES PRESCRIBED. Prescriptions: Albuterol Sulfate [Albuterol Sulfate Hfa] 2 puff IH Q4H #1 hfa.aer.ad Prednisone [Deltasone 10 mg Tablet] 10 mg PO ASDIR PRN #21 tablet PRN Reason: Hydrocodone/Chlorphen P-Stirex [Hydrocodone-Chlorphen ER Susp] 5 ml PO BID #60 ml Ibuprofen [Motrin 800 mg Tablet] 800 mg PO Q8H PRN #30 tab PRN Reason: Referrals: [facility] [Provider Group] - Follow up in 1 week
[2019-04-28 18:09] LABS: A TYPE INFLUENZA AG NEGATIVE (NEGATIVE)
[2019-04-28 18:10] LABS: B INFLUENZA AG NEGATIVE (NEGATIVE)
== END 2019-04-28 19:37 | disposition home or self-care (01) ==
LOC: ER 16:51
DX: M79.10 Myalgia, unspecified site (principal); R05 Cough; J44.9 Chronic obstructive pulmonary disease, unspecified; F17.200 Nicotine dependence, unspecified, uncomplicated
CPT/HCPCS: 94640; 99283; 96372; 87804; J1885; J7620

== ENCOUNTER 2019-05-04 17:01 | Emergency (ER) | payer MEDICAID ==
[2019-05-04 18:11] LABS: ABSOLUTE EOSINOPHILS # (AUTO) 0.1 10^3/uL (0.0-0.6); ABSOLUTE LYMPHOCYTES (AUTO) 2.2 10^3/uL (0.5-4.7); ABSOLUTE MONOCYTES (AUTO) 0.7 10^3/uL (0.1-1.4); ABSOLUTE NEUT (AUTO) 5.3 10^3/uL (1.7-8.2); BASOPHILS % (AUTO) 0.3 % (0-2); EOSINOPHILS % (AUTO) 0.7 % (0-6); HEMATOCRIT 33.1 % (36.0-47.0); LYMPHOCYTES % (AUTO) 26.3 % (13-45); MEAN CORPUSCULAR HEMOGLOBIN 28.5 pg (27.0-33.4); MEAN CORPUSCULAR HGB CONC 33.1 g/dL (32.0-36.0); MEAN CORPUSCULAR VOLUME 86 fl (80-97); MONOCYTES % (AUTO) 8.8 % (3-13); PLATELET COUNT 349 10^3/uL (150-450); RED BLOOD COUNT 3.84 10^6/uL (3.72-5.28); RED CELL DISTRIBUTION WIDTH 16.8 % (11.5-14.0); SEGMENTED NEUTROPHILS % (AUTO) 63.9 % (42-78); TOTAL CELLS COUNTED % (AUTO) 100 %; WHITE BLOOD COUNT 8.3 10^3/uL (4.0-10.5)
[2019-05-04 18:30] LABS: ALBUMIN 3.5 g/dL (3.5-5.0); ALKALINE PHOSPHATASE 53 U/L (38-126); ANION GAP 9 (5-19); ASPARTATE AMINO TRANSFERASE 14 U/L (14-36); BILIRUBIN,DIRECT 0.2 mg/dL (0.0-0.4); BILIRUBIN,TOTAL 0.2 mg/dL (0.2-1.3); BLOOD UREA NITROGEN 13 mg/dL (7-20); CARBON DIOXIDE 29 mmol/L (22-30); CHLORIDE 104 mmol/L (98-107); GLUCOSE 85 mg/dL (75-110)
[2019-05-04 18:31] LABS: ACETAMINOPHEN < 10 ug/mL (10-30); ALCOHOL < 10 mg/dL (NONE DETECTED)
[2019-05-04] MEDS ORDERED: POTASSIUM CHLORIDE 10 MEQ TABLET.ER PO ONE (18:51)
--- NOTE | 2019-05-04 18:51 | EKG REPORT ---
SEVERITY:- NORMAL ECG - SINUS RHYTHM : Confirmed by: Anthony Reyez MD 04-May-2019 18:50:29
[2019-05-04] MEDS ORDERED: DIAZEPAM 5 MG TABLET PO ONE (18:52)
[2019-05-04] MEDS ORDERED: NICOTINE 21 MG/24 HR PATCH.TD24 TD ONE (18:52)
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
[2019-05-05 01:47] LABS: APPEARANCE,URINE CLEAR; BILIRUBIN,URINE NEGATIVE (NEGATIVE); COLOR,URINE YELLOW; GLUCOSE, URINE NEGATIVE (NEGATIVE); KETONES,URINE NEGATIVE (NEGATIVE); LEUKOCYTE ESTERASE,URINE NEGATIVE (NEGATIVE); NITRITE,URINE NEGATIVE (NEGATIVE); PROTEIN,URINE NEGATIVE (NEGATIVE); URINE SPECIFIC GRAVITY 1.012; UROBILINOGEN,URINE NEGATIVE mg/dL (<2.0)
[2019-05-05 01:59] LABS: URINE AMPHETAMINES SCREEN NEGATIVE; URINE BARBITURATES SCREEN NEGATIVE; URINE COCAINE SCREEN NEGATIVE; URINE MARIJUANA (THC) SCREEN NEGATIVE; URINE METHADONE SCREEN NEGATIVE; URINE PHENCYCLIDINE SCREEN NEGATIVE
[2019-05-05 02:00] LABS: URINE BENZODIAZEPINES SCREEN UNCONFIRMED POSITIVE
[2019-05-05] MEDS ORDERED: DIAZEPAM 5 MG TABLET PO ONE (11:10)
[2019-05-05] MEDS ORDERED: POTASSIUM CHLORIDE 10 MEQ TABLET.ER PO ONE (11:11)
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
[2019-05-05 12:55] LABS: BLOOD UREA NITROGEN 12 mg/dL (7-20); CALCIUM 8.7 mg/dL (8.4-10.2); GLUCOSE 73 mg/dL (75-110)
[2019-05-05 12:56] LABS: CHLORIDE 102 mmol/L (98-107); POTASSIUM 3.3 mmol/L (3.6-5.0)
[2019-05-05 13:01] LABS: CARBON DIOXIDE 34 mmol/L (22-30)
[2019-05-05 13:04] LABS: ANION GAP 3 (5-19)
[2019-05-05] MEDS ORDERED: ONDANSETRON 4 MG TAB.RAPDIS PO ONE (14:15)
--- NOTE | 2019-05-05 16:31 | ER Document Report ---
Doctor's Note Notes: 05/05/19 11:00 PHYSICAL EXAMINATION: GENERAL: Well-appearing and in no acute distress. HEAD: Atraumatic, normocephalic. EYES: sclera anicteric, conjunctiva are normal. ENT: nares patent. Moist mucous membranes. NECK: Normal range of motion, supple without lymphadenopathy LUNGS: CTAB and equal. No wheezes rales or rhonchi. HEART: Regular rate and rhythm without murmurs EXTREMITIES: Normal range of motion, no pitting edema. BACK: No midline tenderness, no step-off or deformity. No CVA tenderness NEUROLOGICAL: Cranial nerves grossly intact. Normal speech. Normal gait. PSYCH: Normal mood, normal affect. SKIN: Warm, Dry, normal turgor, no rashes or lesions noted Patient resting quietly on stretcher at this time. Patient had no memory of interacting with this provider yesterday when patient first arrived. Patient states that she lives at home with her although yesterday had told this provider that she has been from her for the past year. Patient argued that this is not what she said and refused to answer questions and she felt like she had already answered them once previously. Patient denies any suicidal homicidal ideation at this time. Patient does have mild hypokalemia which will be replenished here. Patient continues to request her Valium. Patient is otherwise medically clear for discharge or transfer pending mental health evaluation at this time.
[2019-05-05] MEDS ORDERED: QUETIAPINE FUMARATE 100 MG TABLET PO SCH (22:00)
[2019-05-05] MEDS: DIAZEPAM 5 MG TABLET PO SCH (22:12)
[2019-05-05] MEDS ORDERED: NICOTINE 21 MG/24 HR PATCH.TD24 TD ONE (23:37)
[2019-05-06 06:56] LABS: ANION GAP 7 (5-19); BLOOD UREA NITROGEN 15 mg/dL (7-20); CALCIUM 9.3 mg/dL (8.4-10.2); CARBON DIOXIDE 32 mmol/L (22-30); CHLORIDE 101 mmol/L (98-107); GLUCOSE 111 mg/dL (75-110); POTASSIUM 3.3 mmol/L (3.6-5.0)
[2019-05-06] MEDS ORDERED: NICOTINE 21 MG/24 HR PATCH.TD24 TD SCH (10:00)
[2019-05-06] MEDS: DIAZEPAM 5 MG TABLET PO SCH (10:31)
--- NOTE | 2019-05-06 11:07 | ER Document Report ---
Doctor's Note Notes: 05/06/19 11:05 Evaluated patient. Patient without any complaints. Per psychiatric team, patient has been accepted to [facility].
[2019-05-06 11:13] VITALS: BP 122/70
--- NOTE | 2019-05-06 12:23 | PSYCHOLOGICAL NOTE ---
Psych Note - Psych Note Date seen by psych provider: 05/06/19 Time seen by psych provider: 08:10 Psych Note: Reason for consult:IVC Check in Conducted with patient: Patient denies concerns for hallucinations and all allegations reported in IVC petition. She currently presents confused and is not able to organized in provided correct orientation. When asked when year we are in she states '17, and then when asked what month she responded ", 18." She is able to provided her date correctly and identify the April. She is unable to provided the current president stating first it was Obama then changing her answer to Rakesh. Patient does have a reported history of mental health and she is medicated for. She reportedly has stopped taking this medication which has resulted or contributed to her current presentation. The patient's mood and affect are flat and she only minimally engages. Your conversational speech is very soft and difficult to hear. Chart review Conducted Head CT 12/04/2018: no Findings Head MRi 12/05/2018: no Findings Impression/Plan: Patient is recommended for continued IVC. She does have a reported history of mental health and has not been taking her medications. There is reported concerns for hallucinations and aggression. She only will minimally engage with clinician. Patient has been accepted to [facility]; transportation has been requested. Dr. Champion was consulted on the care and management of this patient; attending physician is in agreement with recommendations and disposition.
== END 2019-05-06 13:59 ==
LOC: ER 17:01
DX: R44.0 Auditory hallucinations (principal); F17.200 Nicotine dependence, unspecified, uncomplicated; R41.3 Other amnesia; J44.9 Chronic obstructive pulmonary disease, unspecified; E87.6 Hypokalemia; Z79.899 Other long term (current) drug therapy; Z75.1 Person awaiting admission to adequate facility elsewhere
CPT/HCPCS: 93005; 99285; 36415; 80307 ×4; 83735; 85025; 80048; 80053; 81001; 93010; J3490 ×7; S0119

== ENCOUNTER 2019-05-22 15:09 | Emergency (ER) | payer MEDICAID ==
--- NOTE | 2019-05-22 16:10 | ER Document Report ---
HPI - HPI Patient complains to provider of: RIB PAIN Time Seen by Provider: 05/22/19 16:02 Onset: Yesterday Onset/Duration: Sudden Quality of pain: Achy Pain Level: 5 Context: 54-year-old female with history of asthma presents emergency department with complaints of right-sided rib pain. Reports she tripped and fell yesterday landing on her ribs. She denies hitting her head. Denies change in LOC. Reports she is breathing okay but it just hurts in that area. Denies fever vomiting diarrhea. Associated Symptoms: None Exacerbated by: Denies Relieved by: Denies Similar symptoms previously: No Recently seen / treated by doctor: No - REPRODUCTIVE Reproductive: DENIES: : Past Medical History - General Information source: Patient - Social History Smoking Status: Current Every Day Smoker Cigarette use (# per day): Yes Frequency of alcohol use: None Drug Abuse: None Family History: Hypertension Patient has suicidal ideation: No Patient has homicidal ideation: No Pulmonary Medical History: Reports: Hx Asthma, Hx COPD Renal/ Medical History: Denies: Hx Peritoneal Dialysis Psychiatric Medical History: Reports: Hx Bipolar Disorder, Hx Depression, Hx Schizoaffective Disorder, Hx Schizophrenia Past Surgical History: Reports: Hx Breast Surgery, Hx Tubal Ligation Vertical Provider Document - CONSTITUTIONAL Agree With Documented VS: Yes Exam Limitations: No Limitations General Appearance: WD/WN, No Apparent Distress - INFECTION CONTROL TRAVEL OUTSIDE OF THE [place] IN LAST 30 DAYS: No - HEENT HEENT: Atraumatic, Normocephalic - NECK Neck: Normal Inspection, Supple. negative: Lymphadenopathy-Left, L ymphadenopathy-Right - RESPIRATORY Respiratory: Breath Sounds Normal, No Respiratory Distress, Other - Complains of right lateral rib pain to touch. No ecchymosis respiratory rate even unlabored - CARDIOVASCULAR Cardiovascular: Regular Rate, Regular Rhythm - GI/ABDOMEN Gastrointestinal: Abdomen Soft, Abdomen Non-Tender - BACK Back: Normal Inspection - MUSCULOSKELETAL/EXTREMETIES Musculoskeletal/Extremeties: MAEW, FROM, Non-Tender - NEURO Level of Consciousness: Awake, Alert, Appropriate Motor/Sensory: No Motor Deficit - DERM Integumentary: Warm, Dry Course - Re-evaluation Re-evalutation: 05/22/19 17:00 Chest x-ray negative for an acute fracture. Patient instructed on this. Instructed on the importance of cough deep breathe to prevent pneumonia. Instructed take Motrin as indicated for pain. Patient verbalized understanding. Respiratory rate even unlabored no shortness of breath. Ambulates without problems cough without shortness of breath. Ribs w/Chest X-Ray 05/22/19 16:06 IMPRESSION: 1. No acute cardiopulmonary process. 2. No acute displaced rib fracture. - Vital Signs Vital signs: Temp Pulse Resp BP Pulse Ox 98.2 F 100 18 122/79 100 05/22/19 15:14 05/22/19 15:14 05/22/19 15:14 05/22/19 15:14 05/22/19 15:14 - Diagnostic Test Radiology reviewed: Reports reviewed Discharge - Discharge Clinical Impression: Rib pain on right side Condition: Stable Disposition: HOME, SELF-CARE Instructions: Use of [id number] Ibuprofen ([facility]), Rib Injuries and Fractures ([facility]) Additional Instructions: *You have been evaluated for rib pain *Your rib x-ray was negative for any acute injury no fracture ribs were noted *Cough and deep breathe at least once an hour to prevent pneumonia *Follow up with a primary care provider within for recheck *Return to ED for worsening condition, changes, needs, fever or difficulty breathing concerns Referrals: NICOLE ONEIL MD [Primary Care Provider] - Follow up in 1 week
--- NOTE | 2019-05-22 16:51 | RADIOLOGY REPORT (SQ) ---
EXAM DESCRIPTION: RIBS RIGHT W/PA CHEST COMPLETED DATE/TIME: 05/22/2019 4:39 pm REASON FOR STUDY: PT FELL YESTERDAY, RIB PAIN COMPARISON: None. TECHNIQUE: A PA view of the chest and PA and oblique views of the right ribs were obtained. NUMBER OF VIEWS: Three view. LIMITATIONS: None. FINDINGS: FRONTAL CXR: The cardiomediastinal silhouette and pulmonary vasculature are within normal limits. There is no consolidation, pleural effusion or pneumothorax. RIBS: No acute displaced rib fractures. OTHER: No other finding. IMPRESSION: 1. No acute cardiopulmonary process. 2. No acute displaced rib fracture. COMMENT: SITE OF TRAUMA/COMPLAINT MARKED/STAMP COMPLETED: NO. TECHNICAL DOCUMENTATION: JOB ID: [id number] [employer]- All Rights Reserved Reading location - IP/workstation name: [email or web address]
[2019-05-22 17:36] VITALS: BP 126/93
== END 2019-05-22 17:38 | disposition home or self-care (01) ==
LOC: ER 15:09
DX: R07.81 Pleurodynia (principal); W01.0XXA Fall on same level from slipping, tripping and stumbling without subsequent striking against object, initial encounter; J44.9 Chronic obstructive pulmonary disease, unspecified; F17.210 Nicotine dependence, cigarettes, uncomplicated
CPT/HCPCS: 99283

== ENCOUNTER 2019-07-01 17:42 | Emergency (ER) | payer MEDICAID ==
[2019-07-01] MEDS ORDERED: OXYCODONE-ACETAMINOPHEN 5-325 MG TABLET PO ONE (20:28)
--- NOTE | 2019-07-01 20:31 | ER Document Report ---
ED Medical Screen (RME) - General Chief Complaint: Syncope Stated Complaint: SYNCOPAL EPISODE/BACK PAIN Time Seen by Provider: 07/01/19 20:22 Mode of Arrival: Ambulatory Information source: Patient Notes: Pt with c/o multiple episodes of syncope in the last 4 days. Denies hx of same. C/O back pain from one of her syncopal episodes. Also reports a 40 pound weight loss. Exam: Pt a/o x4, LSCTA bilaterally. I have greeted and performed a rapid initial assessment of this patient. A comprehensive ED assessment and evaluation of the patient, analysis of test results and completion of the medical decision making process will be conducted by additional ED providers. I have specifically instructed the patient or family members with the patient to immediately return to any nursing staff should anything change in the patient's condition or with their chief complaint. TRAVEL OUTSIDE OF THE [place] IN LAST 30 DAYS: No - Related Data Allergies/Adverse Reactions: No Known Allergies Allergy (Verified 05/22/19 15:49) Home Medications: Quetiapine fumarate. Venlafaxine. Diazepam Past Medical History - Social History Frequency of alcohol use: None Drug Abuse: None Pulmonary Medical History: Reports: Hx Asthma, Hx COPD Renal/ Medical History: Denies: Hx Peritoneal Dialysis Psychiatric Medical History: Reports: Hx Bipolar Disorder, Hx Depression, Hx Schizoaffective Disorder, Hx Schizophrenia Past Surgical History: Reports: Hx Breast Surgery, Hx Tubal Ligation Physical Exam - Vital signs Vitals: Temp Pulse Resp BP Pulse Ox 98.1 F 97 22 H 104/74 100 07/01/19 19:13 07/01/19 19:13 07/01/19 19:13 07/01/19 19:13 07/01/19 19:13 Course - Vital Signs Vital signs: Temp Pulse Resp BP Pulse Ox 98.1 F 97 22 H 104/74 100 07/01/19 19:13 07/01/19 19:13 07/01/19 19:13 07/01/19 19:13 07/01/19 19:13
--- NOTE | 2019-07-01 21:55 | RADIOLOGY REPORT (SQ) ---
5 VIEWS OF LUMBAR SPINE EXAM DATE: 07/01/2019 8:27 PM BEEF RIBBER HISTORY: Lower back pain. COMPARISON: None. FINDINGS: There is an age-indeterminate compression fracture of T12 with approximately 30% anterior wedge compression. No retropulsion. Normal lumbar alignment. The disc spaces and facet joints are intact. The sacroiliac joints are preserved. No evidence of spondylolysis on the oblique views. IMPRESSION: Age-indeterminate compression fracture of T12 with approximately 30% anterior wedge compression. Correlate for point tenderness.
[2019-07-01 22:14] LABS: ABSOLUTE EOSINOPHILS # (AUTO) 0.1 10^3/uL (0.0-0.6); ABSOLUTE LYMPHOCYTES (AUTO) 1.5 10^3/uL (0.5-4.7); ABSOLUTE MONOCYTES (AUTO) 0.5 10^3/uL (0.1-1.4); ABSOLUTE NEUT (AUTO) 4.2 10^3/uL (1.7-8.2); BASOPHILS % (AUTO) 0.7 % (0-2); EOSINOPHILS % (AUTO) 1.2 % (0-6); HEMATOCRIT 40.9 % (36.0-47.0); HEMOGLOBIN 13.3 g/dL (12.0-15.5); LYMPHOCYTES % (AUTO) 23.5 % (13-45); MEAN CORPUSCULAR HEMOGLOBIN 27.2 pg (27.0-33.4); MEAN CORPUSCULAR HGB CONC 32.4 g/dL (32.0-36.0); MEAN CORPUSCULAR VOLUME 84 fl (80-97); MONOCYTES % (AUTO) 7.4 % (3-13); PLATELET COUNT 336 10^3/uL (150-450); RED BLOOD COUNT 4.89 10^6/uL (3.72-5.28); RED CELL DISTRIBUTION WIDTH 19.4 % (11.5-14.0); SEGMENTED NEUTROPHILS % (AUTO) 67.2 % (42-78); TOTAL CELLS COUNTED % (AUTO) 100 %; WHITE BLOOD COUNT 6.3 10^3/uL (4.0-10.5)
[2019-07-01 22:41] LABS: ALBUMIN 4.1 g/dL (3.5-5.0); ALKALINE PHOSPHATASE 89 U/L (38-126); ANION GAP 12 (5-19); ASPARTATE AMINO TRANSFERASE 16 U/L (14-36); BILIRUBIN,DIRECT 0.3 mg/dL (0.0-0.4); BILIRUBIN,TOTAL 0.3 mg/dL (0.2-1.3); BLOOD UREA NITROGEN 12 mg/dL (7-20); CALCIUM 9.3 mg/dL (8.4-10.2); CARBON DIOXIDE 27 mmol/L (22-30); CHLORIDE 101 mmol/L (98-107); GLUCOSE 89 mg/dL (75-110); POTASSIUM 3.1 mmol/L (3.6-5.0); TOTAL PROTEIN 7.3 g/dL (6.3-8.2)
[2019-07-01] MEDS ORDERED: ONDANSETRON HCL INJ/PF 4 MG/2 ML SDV IV ONE (22:58)
[2019-07-01] MEDS ORDERED: NORMAL SALINE 1000 ML 1,000 ML IV ONE (22:58)
[2019-07-01] MEDS ORDERED: KETOROLAC TROMETHAMINE INJ/PF 30 MG/1 ML SDV IV ONE (23:42)
[2019-07-02] MEDS ORDERED: MORPHINE SULFATE 10 MG/ML INJ IV ONE ×2 (01:40→06:05)
--- NOTE | 2019-07-02 02:04 | ER Document Report ---
ED General - General Chief Complaint: Syncope Stated Complaint: SYNCOPAL EPISODE/BACK PAIN Time Seen by Provider: 07/01/19 20:22 Mode of Arrival: Ambulatory Information source: Patient Notes: Pt with c/o multiple episodes of syncope in the last 4 days. Denies hx of same. C/O back pain from one of her syncopal episodes. Also reports a 40 pound weight loss. She also reports she is unable to eat or drink anything at all as she vomits every time she tries to swallow anything. Patient reports she has been seen by a fiscal services director and they are doing stretching manipulations of her esophagus. TRAVEL OUTSIDE OF THE [place] IN LAST 30 DAYS: No - Related Data Allergies/Adverse Reactions: No Known Allergies Allergy (Verified 05/22/19 15:49) Home Medications: Quetiapine fumarate. Venlafaxine. Diazepam Past Medical History - General Information source: Patient - Social History Smoking Status: Current Every Day Smoker Frequency of alcohol use: None Drug Abuse: None Family History: Hypertension Patient has suicidal ideation: No Patient has homicidal ideation: No Pulmonary Medical History: Reports: Hx Asthma, Hx COPD Renal/ Medical History: Denies: Hx Peritoneal Dialysis Psychiatric Medical History: Reports: Hx Bipolar Disorder, Hx Depression, Hx Schizoaffective Disorder, Hx Schizophrenia Past Surgical History: Reports: Hx Breast Surgery, Hx Tubal Ligation Review of Systems - Review of Systems Constitutional: See HPI Cardiovascular: See HPI Gastrointestinal: See HPI -: Yes All other systems reviewed and negative Physical Exam - Vital signs Vitals: Temp Pulse Resp BP Pulse Ox 98.1 F 97 22 H 104/74 100 07/01/19 19:13 07/01/19 19:13 07/01/19 19:13 07/01/19 19:13 07/01/19 19:13 - Notes Notes: PHYSICAL EXAMINATION: GENERAL: Well-appearing, well-nourished and in no acute distress. HEAD: Atraumatic, normocephalic. EYES: Pupils equal round and reactive to light, extraocular movements intact, conjunctiva are normal. ENT: Nares patent, oropharynx clear without exudates. Moist mucous membranes. NECK: Normal range of motion, supple without lymphadenopathy LUNGS: Breath sounds clear to auscultation bilaterally and equal. No wheezes rales or rhonchi. HEART: Regular rate and rhythm without murmurs ABDOMEN: Soft, nontender, nondistended abdomen. No guarding, no rebound. No masses appreciated. Female : deferred Musculoskeletal: Normal range of motion, no pitting or edema. No cyanosis. Tenderness to palpation in the lumbar paraspinous region. Mild tenderness over the lumbar vertebral area. No step-off or deformity.. NEUROLOGICAL: Cranial nerves grossly intact. Normal speech, normal gait. Normal sensory, motor exams PSYCH: Normal mood, normal affect. SKIN: Warm, Dry, normal turgor, no rashes or lesions noted. Course - Re-evaluation Re-evalutation: Patient is a very anxious appearing 54-year-old female. Her work-up today has been extensive but benign. Her potassium was 3.1, I initially started IV potassium, she received a total of 20 mEq. She was then transition to oral potassium which she was able to swallow without difficulty. 1 of patient's complaints is that she is unable to swallow any food or drink at all over the last several months thus having a significant weight LOSS. She has not seen her primary care provider for this. Upon reviewing patient's charts I found that patient indeed has not had any significant weight loss and has been seen at this hospital multiple times for psychiatric issues. All other labs were unremarkable. A CT of her head was obtained and was unremarkable. Her has asked me repeatedly to admit her to the hospital for her recurrent syncope and weight loss. Unfortunately at this point in time the vital signs have been stable, her work-up benign, orthostatic vital signs within normal limits therefore I have no indication or reason to admit her. I encouraged her to please follow-up closely with her primary care provider for further management of her issues. They were invited to return to the emergency department at anytime with any new or worsening complaints. I did offer to provide her prescriptions for her low back pain, she specifically asked for morphine which I declined. - Vital Signs Vital signs: Temp Pulse Resp BP Pulse Ox 98.1 F 77 17 109/78 99 07/02/19 06:51 07/02/19 04:03 07/02/19 06:01 07/02/19 06:01 07/02/19 06:01 - Laboratory Result Diagrams: 07/01/19 21:30 07/01/19 21:30 Laboratory results interpreted by me: 07/01/19 07/01/19 07/02/19 21:30 21:30 02:10 RDW 19.4 H Potassium 3.1 L Urine Ketones TRACE H Discharge - Discharge Clinical Impression: Hypokalemia Low back pain Qualifiers: Chronicity: acute Back pain laterality: midline Sciatica presence: without sciatica Qualified Code(s): M54.5 - Low back pain Syncope Qualifiers: Syncope type: unspecified Qualified Code(s): R55 - Syncope and collapse Condition: Stable Disposition: HOME, SELF-CARE Additional Instructions: Your work-up today was unremarkable. Your potassium was on the low side which was replaced today. I do not find any reason for your recurrent syncopal episodes. Please follow-up with your primary care provider, they will need to further manage this and perhaps add on additional outpatient testing. Take medications as prescribed for your back pain. Return to the emergency department with any new or worsening concerns. Prescriptions: Ketorolac Tromethamine [Toradol 10 mg Tablet] 10 mg PO Q6HP PRN #20 tablet PRN Reason: Lidocaine [Lidoderm 5% (700 mg) Transdermal Patch] 1 patch TP DAILY #30 adh..patch Ondansetron [Zofran Odt 4 mg Tablet] 1 - 2 tab PO Q4H PRN #15 tab.rapdis PRN Reason: For Nausea/Vomiting
[2019-07-02 02:53] LABS: APPEARANCE,URINE SLIGHTLY-CLOUDY; BILIRUBIN,URINE NEGATIVE (NEGATIVE); COLOR,URINE YELLOW; GLUCOSE, URINE NEGATIVE (NEGATIVE); KETONES,URINE TRACE mg/dL (NEGATIVE); LEUKOCYTE ESTERASE,URINE NEGATIVE (NEGATIVE); NITRITE,URINE NEGATIVE (NEGATIVE); PROTEIN,URINE NEGATIVE (NEGATIVE); URINE SPECIFIC GRAVITY 1.015; UROBILINOGEN,URINE NEGATIVE mg/dL (<2.0)
[2019-07-02] MEDS ORDERED: NICOTINE 21 MG/24 HR PATCH.TD24 ONE (02:53)
[2019-07-02] MEDS ORDERED: NICOTINE 21 MG/24 HR PATCH.TD24 TD ONE (02:56)
[2019-07-02] MEDS: POTASSI CL 20 MEQ/50 ML RIDER 20 MEQ/50 ML RTUPB IV SCH ×2 (03:01→06:25)
--- NOTE | 2019-07-02 03:04 | RADIOLOGY REPORT (SQ) ---
EXAM DESCRIPTION: CT LUMBAR SPINE WITHOUT IV CONTRAST COMPLETED DATE/TME: 07/02/2019 01:39 CLINICAL HISTORY: 54 years, Female, low back pain COMPARISON: None. TECHNIQUE: Axial CT images of the lumbar spine were obtained without contrast. Sagittal and coronal reformats were performed. [facility] [id number] Images stored on PACS. All CT scanners at this facility use dose modulation, iterative reconstruction, and/or weight based dosing when appropriate to reduce radiation dose to as low as reasonably achievable (ALARA). [facility]: Dose Right [facility]: CareDose [facility]: Dose Right [facility]: Teradose 4D [facility]: Spinback LIMITATIONS: None. FINDINGS: The alignment of the lumbar spine is satisfactory. There is no acute fracture or subluxation. There is mild chronic anterior wedging along the superior endplate of T12. There is a mild diffuse disc bulge at L3-L4 and L4-L5. The paraspinal soft tissues appear unremarkable. There are atherosclerotic calcifications of the abdominal aorta and iliac branches without evidence of an aneurysm. Both kidneys appear unremarkable with no evidence of urolithiasis or hydronephrosis. IMPRESSION: No acute fracture or subluxation of the lumbar spine. TECHNICAL DOCUMENTATION: Quality ID # 436: Final reports with documentation of one or more dose reduction techniques (e.g., Automated exposure control, adjustment of the mA and/or kV according to patient size, use of iterative reconstruction technique) copyright 2011 [employer]- All Rights Reserved
--- NOTE | 2019-07-02 03:05 | RADIOLOGY REPORT (SQ) ---
EXAM DESCRIPTION: CT HEAD WITHOUT IV CONTRAST COMPLETED DATE/TME: 07/02/2019 02:03 CLINICAL HISTORY: 54 years, Female, syncope COMPARISON: None. TECHNIQUE: Images stored on PACS. All CT scanners at this facility use dose modulation, iterative reconstruction, and/or weight based dosing when appropriate to reduce radiation dose to as low as reasonably achievable (ALARA). [facility]: Dose Right [facility]: CareDose [facility]: Dose Right [facility]: Teradose 4D [facility]: [employer] LIMITATIONS: None. FINDINGS: Enciso-white differentiation is normal. The ventricles and extracerebral spaces are within normal limits for age. No evidence of mass lesion, positive mass effect, or intracranial hemorrhage. The orbits and eyeballs are unremarkable. Paranasal sinuses are grossly clear. Mastoid air cells are clear. IMPRESSION: No acute intracranial process is identified. The cause of the patient's syncope is not identified on this examination. TECHNICAL DOCUMENTATION: Quality ID # 436: Final reports with documentation of one or more dose reduction techniques (e.g., Automated exposure control, adjustment of the mA and/or kV according to patient size, use of iterative reconstruction technique) copyright 2011 [employer]- All Rights Reserved
[2019-07-02] MEDS ORDERED: POTASSIUM CHLORIDE 10 MEQ TABLET.ER PO ONE (04:48)
[2019-07-02 06:35] VITALS: BP 109/78
== END 2019-07-02 06:35 | disposition home or self-care (01) ==
LOC: ER 17:42
DX: E87.6 Hypokalemia (principal); R55 Syncope and collapse; M54.5 Low back pain; M54.9 Dorsalgia, unspecified; R11.10 Vomiting, unspecified; R63.4 Abnormal weight loss; F17.200 Nicotine dependence, unspecified, uncomplicated; Z79.899 Other long term (current) drug therapy; J44.9 Chronic obstructive pulmonary disease, unspecified
CPT/HCPCS: 96376; 99284; 96361; 96375; 96365; 96366; 36415; 85025; 80053; 81001; 84484; 72110; 70450; 72131; J1885; J2270; J2405; J3480; J7030; J3490

== ENCOUNTER 2019-08-07 20:56 | Emergency (ER) | payer MEDICAID ==
[2019-08-07 21:31] LABS: ABSOLUTE LYMPHOCYTES (AUTO) 1.7 10^3/uL (0.5-4.7); ABSOLUTE MONOCYTES (AUTO) 0.8 10^3/uL (0.1-1.4); ABSOLUTE NEUT (AUTO) 5.6 10^3/uL (1.7-8.2); BASOPHILS % (AUTO) 0.2 % (0-2); EOSINOPHILS % (AUTO) 0.2 % (0-6); HEMATOCRIT 40.9 % (36.0-47.0); HEMOGLOBIN 13.8 g/dL (12.0-15.5); LYMPHOCYTES % (AUTO) 21.1 % (13-45); MEAN CORPUSCULAR HEMOGLOBIN 28.2 pg (27.0-33.4); MEAN CORPUSCULAR HGB CONC 33.8 g/dL (32.0-36.0); MEAN CORPUSCULAR VOLUME 84 fl (80-97); MONOCYTES % (AUTO) 10.1 % (3-13); PLATELET COUNT 367 10^3/uL (150-450); RED BLOOD COUNT 4.91 10^6/uL (3.72-5.28); RED CELL DISTRIBUTION WIDTH 21.7 % (11.5-14.0); SEGMENTED NEUTROPHILS % (AUTO) 68.4 % (42-78); TOTAL CELLS COUNTED % (AUTO) 100 %; WHITE BLOOD COUNT 8.2 10^3/uL (4.0-10.5)
[2019-08-07 21:52] LABS: ANISOCYTOSIS 3+; OVALOCYTES SLIGHT; PLATELET COMMENT ADEQUATE; POIKILOCYTOSIS SLIGHT
[2019-08-07 21:55] LABS: ACETAMINOPHEN < 10 ug/mL (10-30); ALBUMIN 4.5 g/dL (3.5-5.0); ALCOHOL < 10 mg/dL (NONE DETECTED); ALKALINE PHOSPHATASE 76 U/L (38-126); ANION GAP 12 (5-19); ASPARTATE AMINO TRANSFERASE 17 U/L (14-36); BILIRUBIN,DIRECT 0.2 mg/dL (0.0-0.4); BILIRUBIN,TOTAL 0.3 mg/dL (0.2-1.3); BLOOD UREA NITROGEN < 2 mg/dL (7-20); CALCIUM 9.5 mg/dL (8.4-10.2); CARBON DIOXIDE 24 mmol/L (22-30); CHLORIDE 98 mmol/L (98-107); GLUCOSE 135 mg/dL (75-110); POTASSIUM 3.1 mmol/L (3.6-5.0); SALICYLATE 3.8 mg/dL (2.0-20.0); TOTAL PROTEIN 7.6 g/dL (6.3-8.2)
[2019-08-07] MEDS ORDERED: ACETAMINOPHEN 325 MG TABLET PO ONE (21:59)
[2019-08-07] MEDS ORDERED: NICOTINE 21 MG/24 HR PATCH.TD24 TD ONE (21:59)
[2019-08-07] MEDS ORDERED: QUETIAPINE FUMARATE 100 MG TABLET PO SCH (22:00)
[2019-08-07] MEDS ORDERED: POTASSIUM CHLORIDE 10 MEQ TABLET.ER PO ONE (22:04)
--- NOTE | 2019-08-07 22:04 | ER Document Report ---
ED General - General Chief Complaint: Psych Problem Stated Complaint: PSYCH EVAL/IVC Time Seen by Provider: 08/07/19 21:45 TRAVEL OUTSIDE OF THE [place] IN LAST 30 DAYS: No - HPI Notes: Patient is a 54-year-old female with a history of bipolar disorder, schizophrenia, who presents to the emergency department for evaluation under an involuntary commitment order. Evidently he was delusional, was threatening to murder her . The patient states to me "I would not tell you I am seeing things, I do not want you to fill me full of those medications." She denies any suicidal or homicidal ideations. She states she loves her , they have been for 35 years. The patient admits that she stopped taking all of her psychiatric medicines at least a week ago, stating "I not like the way the schizophrenia medicines make me feel." She is very guarded when I asked her about hallucinations, and will not admit to any. She does have a history of inpatient hospitalization. She states that she does have some pain in her lower back and her knees, but this is chronic in nature. She denies any bowel or bladder incontinence, no saddle anesthesia, no focal numbness or weakness. - Related Data Allergies/Adverse Reactions: No Known Allergies Allergy (Verified 05/22/19 15:49) Home Medications: seroquel. valium Past Medical History - General Information source: Patient - Social History Smoking Status: Current Every Day Smoker Family History: Hypertension Patient has suicidal ideation: No Patient has homicidal ideation: No Pulmonary Medical History: Reports: Hx Asthma, Hx COPD Renal/ Medical History: Denies: Hx Peritoneal Dialysis Psychiatric Medical History: Reports: Hx Bipolar Disorder, Hx Depression, Hx Schizoaffective Disorder, Hx Schizophrenia Past Surgical History: Reports: Hx Breast Surgery, Hx Tubal Ligation Review of Systems - Review of Systems Musculoskeletal: See HPI Neurological/Psychological: See HPI -: Yes All other systems reviewed and negative Physical Exam - Vital signs Vitals: Temp Pulse Resp BP Pulse Ox 98.3 F 108 H 18 130/78 H 99 08/07/19 20:59 08/07/19 20:59 08/07/19 20:59 08/07/19 20:59 08/07/19 20:59 - Notes Notes: This is a very pleasant 54-year-old female who appears her stated age, in no acute distress. She is calm, cooperative, very flat affect, but appropriate with examiner. Vital signs reviewed, please refer to chart. Head is normocephalic, atraumatic. Pupils equal round, reactive to light. Neck is supple without meningismus. Heart is regular rate and rhythm. Lungs are clear to auscultation bilaterally. Abdomen is soft, nontender, normoactive bowel sounds throughout. Extremities without cyanosis, clubbing. Posterior calves are nontender. Peripheral pulses are equal. Skin is warm and dry. Patient is awake, alert, neurological exam is nonfocal. Course - Re-evaluation Re-evalutation: 08/07/19 22:03 Patient presents to the emergency department for evaluation. She has IVC orders already in place. Laboratory investigations were ordered as per protocol. Patient has been on Seroquel and Effexor in the past, these were restarted. I did see through her summary that she was recently started on Protonix, I ordered this as well. She was given a nicotine patch, Tylenol for her chronic knee and back pain. She is stable at this time, awaiting the remainder of laboratory investigations. 08/08/19 00:32 Laboratory vesication's reveals a mild hypokalemia. She is given oral potassium. Her urinalysis and urine tox are still pending, but at this point, b esides this, she is medically cleared. Awaiting psychosocial input. - Vital Signs Vital signs: Temp Pulse Resp BP Pulse Ox 98.5 F 93 18 150/98 H 98 08/07/19 21:34 08/07/19 21:34 08/07/19 21:34 08/07/19 21:34 08/07/19 21:34 - Laboratory Result Diagrams: 08/07/19 21:15 08/07/19 21:15 Laboratory results interpreted by me: 08/07/19 08/07/19 21:15 21:15 RDW 21.7 H Sodium 133.7 L Potassium 3.1 L BUN < 2 L Glucose 135 H Acetaminophen < 10 L - EKG Interpretation by Me Additional EKG results interpreted by me: 08/08/19 00:32 Sinus mechanism with a rate of 88 bpm. Normal axis and intervals. No acute ST changes concerning for ischemia or infarction. Discharge - Discharge Clinical Impression: Hypokalemia Schizophrenia Qualifiers: Schizophrenia type: unspecified Qualified Code(s): F20.9 - Schizophrenia, unspecified Condition: Stable Disposition: OTHER
[2019-08-08 04:25] LABS: APPEARANCE,URINE SLIGHTLY-CLOUDY; BILIRUBIN,URINE NEGATIVE (NEGATIVE); COLOR,URINE YELLOW; GLUCOSE, URINE NEGATIVE (NEGATIVE); KETONES,URINE NEGATIVE (NEGATIVE); LEUKOCYTE ESTERASE,URINE NEGATIVE (NEGATIVE); NITRITE,URINE NEGATIVE (NEGATIVE); PROTEIN,URINE NEGATIVE (NEGATIVE); URINE SPECIFIC GRAVITY 1.003; UROBILINOGEN,URINE NEGATIVE mg/dL (<2.0)
[2019-08-08 04:43] LABS: URINE AMPHETAMINES SCREEN NEGATIVE; URINE BARBITURATES SCREEN NEGATIVE; URINE COCAINE SCREEN NEGATIVE; URINE MARIJUANA (THC) SCREEN NEGATIVE; URINE METHADONE SCREEN NEGATIVE; URINE PHENCYCLIDINE SCREEN NEGATIVE
[2019-08-08 04:45] LABS: URINE BENZODIAZEPINES SCREEN UNCONFIRMED POSITIVE
[2019-08-08] MEDS ORDERED: ACETAMINOPHEN 325 MG TABLET PO ONE (06:16)
[2019-08-08] MEDS: PANTOPRAZOLE SODIUM 40 MG TABLET.DR PO SCH ×2 (06:21→18:12)
[2019-08-08] MEDS ORDERED: NORMAL SALINE 1000 ML 1,000 ML IV ONE (07:00)
[2019-08-08] MEDS ORDERED: ONDANSETRON HCL INJ/PF 4 MG/2 ML SDV IV ONE (07:00)
--- NOTE | 2019-08-08 07:31 | ER Document Report ---
Doctor's Note Notes: 08/08/19 06:45 Nurse brought to my attention that when she took patient's vitals this morning she was hypotensive. I had her recheck vital signs 15 minutes later and she continues to be hypotensive and had an episode of vomiting. Will order 1 L normal saline bolus and also repeat patient's lab work. Patient is currently asymptomatic, resting in the stretcher with no acute distress noted.
[2019-08-08 07:56] LABS: ABSOLUTE LYMPHOCYTES (AUTO) 1.5 10^3/uL (0.5-4.7); ABSOLUTE MONOCYTES (AUTO) 0.6 10^3/uL (0.1-1.4); ABSOLUTE NEUT (AUTO) 2.2 10^3/uL (1.7-8.2); BASOPHILS % (AUTO) 0.3 % (0-2); EOSINOPHILS % (AUTO) 0.6 % (0-6); HEMATOCRIT 36.9 % (36.0-47.0); HEMOGLOBIN 12.3 g/dL (12.0-15.5); LYMPHOCYTES % (AUTO) 34.5 % (13-45); MEAN CORPUSCULAR HEMOGLOBIN 27.7 pg (27.0-33.4); MEAN CORPUSCULAR HGB CONC 33.3 g/dL (32.0-36.0); MEAN CORPUSCULAR VOLUME 83 fl (80-97); PLATELET COUNT 247 10^3/uL (150-450); RED BLOOD COUNT 4.44 10^6/uL (3.72-5.28); RED CELL DISTRIBUTION WIDTH 21.8 % (11.5-14.0); SEGMENTED NEUTROPHILS % (AUTO) 51.6 % (42-78); TOTAL CELLS COUNTED % (AUTO) 100 %; WHITE BLOOD COUNT 4.3 10^3/uL (4.0-10.5)
[2019-08-08 08:07] LABS: ALBUMIN 3.4 g/dL (3.5-5.0); ALKALINE PHOSPHATASE 61 U/L (38-126); ANION GAP 7 (5-19); ASPARTATE AMINO TRANSFERASE 13 U/L (14-36); BILIRUBIN,DIRECT 0.2 mg/dL (0.0-0.4); BILIRUBIN,TOTAL 0.2 mg/dL (0.2-1.3); BLOOD UREA NITROGEN 2 mg/dL (7-20); CALCIUM 8.9 mg/dL (8.4-10.2); CARBON DIOXIDE 27 mmol/L (22-30); CHLORIDE 103 mmol/L (98-107); GLUCOSE 113 mg/dL (75-110)
[2019-08-08 08:14] LABS: POTASSIUM 2.7 mmol/L (3.6-5.0)
[2019-08-08] MEDS ORDERED: POTASSIUM CHLORIDE 10 MEQ TABLET.ER PO ONE (08:22)
[2019-08-08] MEDS: POTASSI CL 20 MEQ/50 ML RIDER 20 MEQ/50 ML RTUPB IV SCH ×2 (09:13→11:28)
--- NOTE | 2019-08-08 09:51 | ER Document Report ---
Doctor's Note Notes: 08/08/19 09:49 Progress note: Patient was remaining in the emergency department upon shift change. She was noted to have low potassium. She was given potassium earlier and her repeat testing shows a potassium of 2.7, lower than prior. 40 mill equivalents IV and p.o. given to the patient at that time. Repeat EKG was ord ered showed at 945 showing a rate of 94 bpm. Intervals within normal limits. QTc is slightly longer than prior. No peak T waves. Patient is stable and on a monitor. Will reevaluate later. 08/08/19 17:45 Repeat labs show her potassium did not be within normal range. Her magnesium is normal. These numbers were forwarded to the facility the patient is being transferred to. They have accepted her for transfer for further care and management. At this point she is awaiting a ride. She does continue to complain of intermittent episodes of chronic pain. She was given Toradol here. She is otherwise stable and appropriate. Mood is slightly anxious. 08/08/19 18:08 Heart: Regular rate and rhythm, lungs: Clear to auscultation bilaterally. Patient given Toradol and her home dose of Valium. She is medically cleared and stable for transfer to the psychiatric center.
[2019-08-08] MEDS ORDERED: VENLAFAXINE HCL 37.5 MG CAP.SR.24H PO SCH (10:00)
[2019-08-08] MEDS ORDERED: NICOTINE 21 MG/24 HR PATCH.TD24 TD ONE (10:52)
[2019-08-08] MEDS ORDERED: KETOROLAC TROMETHAMINE INJ/PF 30 MG/1 ML SDV IV ONE ×2 (11:17→17:49)
--- NOTE | 2019-08-08 15:16 | PSYCHOLOGICAL NOTE ---
Psych Note - Psych Note Date seen by psych provider: 08/08/19 Time seen by psych provider: 13:40 Psych Note: Reason For Consult:IVC Patient denies she was fighting with her last night. She disclosed that she did get upset because he said "I was talking to myself, But I wasn't...I was talking to the [place]." She confirms she still can hear the [place] and denied every seeing them. She states her medication "got away for her" and she has not been taking her psychiatric medications. Chart review conducted: Patient last picked up psychiatric medications on 06/01/2019. She is prescribed Diazepam 10mg twice daily as needed, Seroquel 600mg every evening, and Effexor 75mg every morning. Collateral obtained from by Behavioral Health Team's Preparation Supervisor [place]: please she mental health note Patient is alert and orientated to person, place, time. Mood is euthymic with blunted affect. Patient denies suicidal and homicidal ideation. Patient is actively responding to interal stimlui reporting talking to [employer]. She denies seeing them. Patient is noted to be looking around the room. Eye contact is poor. Conversational speech is quite but easily understood and answers overall appropriate to questions. Intellectual abilities appear to be within the average range. Attention and concentration are fair. Insight, judgment, impulse control are poor. Medication recommendations per [facility]'s contracted psychiatrist Dr. Yi WESTON are as follows Please restart home medications Impression\\plan:Patient is recommended to continue under IVC. Patient is currently responding to internal stimuli. She reports talking with "Saints" and got into an argument with her about it. Reportedly the patient threatened to kill her . She continues to disclose auditory hallucinations but denies visual. Clinician notes the patient is actively looking around the room and does not make eye contact. Patient has not been taking her psychiatric medications. Medication recommendations have been provided. Patient has been accepted to [place]; Transportation has been requested. Dr. Champion was consulted to care management of this patient; attending physicians in agreement with recommendations and disposition.
[2019-08-08 16:43] LABS: BLOOD UREA NITROGEN 3 mg/dL (7-20); CALCIUM 8.5 mg/dL (8.4-10.2); CARBON DIOXIDE 24 mmol/L (22-30); CHLORIDE 107 mmol/L (98-107); GLUCOSE 208 mg/dL (75-110)
[2019-08-08 16:49] LABS: ANION GAP 3 (5-19); POTASSIUM 4.6 mmol/L (3.6-5.0)
[2019-08-08] MEDS ORDERED: DIAZEPAM 5 MG TABLET PO ONE (17:49)
--- NOTE | 2019-08-08 18:43 | ER Document Report ---
Doctor's Note Notes: 08/08/19 18:42 Patient has been accepted to transfer to [place], they will be here to obtain her at 7:30 PM. CHRISTIANO completed. Her paperwork is awaiting. She stable for transfer.
[2019-08-08 20:26] VITALS: BP 116/74
--- NOTE | 2019-08-09 11:04 | EKG REPORT ---
SEVERITY:- NORMAL ECG - SINUS RHYTHM : Confirmed by: Sanam Suggs 09-Aug-2019 11:03:43
--- NOTE | 2019-08-09 11:04 | EKG REPORT ---
SEVERITY:- NORMAL ECG - SINUS RHYTHM : Confirmed by: Sanam Suggs 09-Aug-2019 11:03:52
== END 2019-08-08 20:22 ==
LOC: ER 20:56
DX: E87.6 Hypokalemia (principal); F20.9 Schizophrenia, unspecified; I95.9 Hypotension, unspecified; F17.200 Nicotine dependence, unspecified, uncomplicated; Z98.51 Tubal ligation status; G89.29 Other chronic pain; M54.5 Low back pain; M25.562 Pain in left knee; M25.561 Pain in right knee; R11.10 Vomiting, unspecified
CPT/HCPCS: 93005 ×2; 96376; 99285; 96361; 96374; 96375; 36415; 80307 ×4; 83735; 85025; 80053; 81001; 93010 ×2; J3490 ×8; J1885; J2405; J3480; J7030

== ENCOUNTER 2019-10-13 23:11 | Emergency (ER) | payer MEDICAID ==
--- NOTE | 2019-10-13 23:26 | ER Document Report ---
ED Medical Screen (RME) - General Chief Complaint: Psych Problem Stated Complaint: IVC/PSYCH Time Seen by Provider: 10/13/19 23:21 Mode of Arrival: Ambulatory Information source: Patient, Law Enforcement Notes: Patient presents with officer with IVC paperwork. Patient reportedly is having auditory and visual hallucinations seeing people and talking to people who are not there. Patient has been having thoughts of having babies and throwing them out of the window. Patient has become aggressive towards her spouse. Patient states she has had increased anxiety but denies any SI or HI. Patient denies any hallucinations. I have greeted and performed a rapid initial assessment of this patient. A comprehensive ED assessment and evaluation of the patient, analysis of test results and completion of the medical decision making process will be conducted by additional ED providers. TRAVEL OUTSIDE OF THE [place] IN LAST 30 DAYS: No - Related Data Allergies/Adverse Reactions: No Known Allergies Allergy (Verified 10/13/19 23:19) Past Medical History Pulmonary Medical History: Reports: Hx Asthma, Hx COPD Renal/ Medical History: Denies: Hx Peritoneal Dialysis Psychiatric Medical History: Reports: Hx Bipolar Disorder, Hx Depression, Hx Schizoaffective Disorder, Hx Schizophrenia Past Surgical History: Reports: Hx Breast Surgery, Hx Tubal Ligation Physical Exam - General General appearance: Appears well, Alert - Cardiovascular Rhythm: Regular Heart sounds: S1 appreciated, S2 appreciated - Psychological Associated symptoms: Anxious, Other - cooperative with staff
[2019-10-14] MEDS ORDERED: NICOTINE 14 MG/24 HR PATCH.TD24 TD ONE (01:07)
--- NOTE | 2019-10-14 01:53 | ER Document Report ---
ED General - General Mode of Arrival: Ambulatory TRAVEL OUTSIDE OF THE U.S. IN LAST 30 DAYS: No - Related Data Home Medications: PAIN MEDS. "NERVES" <JEREMY ELLISON - Last Filed: 10/14/19 05:42> <JADE HERNANDEZ - Last Filed: 10/14/19 09:45> <ELVIA HERNANDEZ - Last Filed: 10/14/19 13:20> <JAYLEEN PICHARDO - Last Filed: 10/14/19 14:27> - General Chief Complaint: Psych Problem Stated Complaint: IVC/PSYCH Time Seen by Provider: 10/13/19 23:21 Primary Care Provider: [facility] [Outside] - Follow up as needed (Can call for appointments [phone]) [facility] [Outside] - Follow up as needed (Walk in Saturday- Saturday 8:00AM-Noon) [facility] [Outside] - Follow up as needed [facility] [Outside] - Follow up as needed (Walk in Saturday-Saturday 8:00AM-4:30 PM) [facility] [Outside] - Follow up as needed Notes: 54-year-old female brought to the emergency department under 24-hour hold petition from the [facility] that states that the patient is having auditory hallucinations that are telling her that she is having babies and she should threw the babies out the window. Patient denies this. Patient denies that she hears voices, that the voices are always just talking but never tell her to do anything. States the voices are unchanged for the past 5 years. States she has diagnosis of bipolar disease. Sees Dr. Oro in [place]. States she is not taking any medications for this. Denies suicidal or homicidal ideation. (JEREMY ELLISON) - Related Data Allergies/Adverse Reactions: No Known Allergies Allergy (Verified 10/13/19 23:19) Past Medical History - General Information source: Patient, Law Enforcement - Social History Smoking Status: Current Every Day Smoker Frequency of alcohol use: None Drug Abuse: None Family History: Hypertension Patient has homicidal ideation: No Pulmonary Medical History: Reports: Hx Asthma, Hx COPD Renal/ Medical History: Denies: Hx Peritoneal Dialysis Psychiatric Medical History: Reports: Hx Bipolar Disorder, Hx Depression, Hx Schizoaffective Disorder, Hx Schizophrenia Past Surgical History: Reports: Hx Breast Surgery, Hx Tubal Ligation <JEREMY ELLISON - Last Filed: 10/14/19 05:42> Review of Systems - Review of Systems Constitutional: No symptoms reported Neurological/Psychological: See HPI, Hallucinations -: Yes All other systems reviewed and negative <JEREMY ELLISON - Last Filed: 10/14/19 05:42> Physical Exam - Vital signs Interpretation: Normal <JEREMY ELLISON - Last Filed: 10/14/19 05:42> - Vital signs Vitals: Temp 98.1 F 10/13/19 23:19 - Notes Notes: GENERAL: Alert, interacts well. No acute distress. HEAD: Normocephalic, atraumatic EYES: Pupils equal, round and reactive to light, extraocular movements intact. ENT: Oral mucosa moist, tongue midline. NECK: Full range of motion, supple, trachea midline. LUNGS: Clear to auscultation bilaterally, no wheezes, rales or rhonchi, no respiratory distress. HEART: Regular rate and rhythm, no murmurs, gallops, rubs. ABDOMEN: Soft, nontender, nondistended, bowel sounds present in all 4 quadrants. EXTREMITIES: Moves all 4 extremities spontaneously, no edema, radial and dorsalis pedis pulses 2/4 bilaterally. No cyanosis. NEUROLOGICAL: Alert and oriented x3, normal speech, no facial droop. PSYCH: Normal mood, normal affect. SKIN: Warm, Dry, normal turgor, no rashes or lesions noted. (JEREMY ELLISON) Course - Laboratory Result Diagrams: 10/14/19 01:27 10/14/19 01:27 <JEREMY ELLISON - Last Filed: 10/14/19 05:42> - Laboratory Result Diagrams: 10/14/19 01:27 10/14/19 05:28 <JADE HERNANDEZ - Last Filed: 10/14/19 09:45> - Laboratory Result Diagrams: 10/14/19 01:27 10/14/19 05:28 <ELVIA HERNANDEZ - Last Filed: 10/14/19 13:20> - Laboratory Result Diagrams: 10/14/19 01:27 10/14/19 12:46 <JAYLEEN PICHARDO - Last Filed: 06/10/20 14:27> - Re-evaluation Re-evalutation: 10/14/19 01:55 Patient is quite pleasant. No evidence of hallucinations at this time. Discussed with patient that as I have a hold from the casualty claims supervisor and someone stating that she is having auditory hallucinations that are directing her to harm other people that she will be kept on a 24-hour hold until behavioral health is able to assess her as well. Blood work is pending. After patient initially told me she took no medication she then told me that she needs medication for her chronic back pain and her anxiety. Patient states that she takes Xanax 30 mg. When I told her that that is not a dosage she corrected it to 15 mg, when I told her that was not a diagnosis she said it was either 5 mg or 10 mg. Discussed with patient that until I could confirm a specific dosage through a pharmacy that I would not be prescribing Xanax in the emergency department. Patient also states that she needs OxyContin for her back pain. States that she takes 30 mg 4 times a day. This is a very high dose. I do not see this prescribed anywhere in the computer when I checked pharmacies. At this time patient will not be given any Xanax or cocci codon until can be verified with the pharmacy. 10/14/19 05:08 CBC unremarkable, CMP unremarkable, salicylates are 36.7 patient rechecked, snoring in the hallway, awakens easily, no confusion. CBC unremarkable, CMP shows elevated chloride at 108, normal CO2 24, no elevation in the anion gap, salicylates elevated at 36.7. Acetaminophen and alcohol undetectable. Discussed elevated salicylate level with patient. She denies taking aspirin however when I clarify that this could include oil of [place], BC powders or Goody powders she states that she goes through approximately 1 box of Goody powder every week. Denies intentionally overdosing, states she only takes this for her pain. Denies taking any more than usual this week. Discussed case with poison control, they recommend hydrating with lactated Ringer's, if any confusion discussing with nephrology, also recommend repeat acetaminophen, salicylate levels and BMP. I am also waiting on a venous blood gas and an EKG. (JEREMY ELLISON) 10/14/19 09:45 I reviewed the chart. Patient presented with visual and auditory hallucinations also with questionable psychotic malingering for drugs. Had asked several times for Xanax and OxyContin or oxycodone from prior shifts. Patient was noted to have a high salicylate level, her repeat this morning is lower. She does admit to taking Goody powders at home. Has been evaluated by psychiatric team, will be discharged when medically cleared (JADE HERNANDEZ) 10/14/19 14:24 The patient was signed out to me at shift change from Dr. Contreras. Patient had been seen in the ER for hallucinations. She was found to have an elevated ASA level but this was thought to be chronic given her history of frequent ASA use. Poison control was contacted and they recommended trending the ASA level to ensure it downtrended which id did. Psych saw the patient and cleared her. Patient told to follow up with her PCP and outpatient mental health. Patient told to stop taking so much aspirin. (JAYLEEN PICHARDO) - Vital Signs Vital signs: Temp Pulse Resp BP Pulse Ox 98.0 F 82 12 123/75 98 10/14/19 11:11 10/14/19 11:11 10/14/19 11:11 10/14/19 11:11 10/14/19 11:11 - Laboratory Laboratory results interpreted by me: 10/14/19 10/14/19 10/14/19 01:27 01:27 05:28 RDW 19.0 H Chloride 108 H 110 H Anion [place] Salicylates 36.7 H* 32.8 H* Acetaminophen < 10 L < 10 L 10/14/19 10/14/19 12:46 12:46 RDW Chloride 112 H Anion Gap 3 L Salicylates 23.2 H* Acetaminophen - EKG Interpretation by Me Additional EKG results interpreted by me: 10/14/19 01:57 EKG shows sinus rhythm rate of 83, normal axis, normal intervals, no ST segment elevations or depressions, no T wave inversions per my interpretation. (JEREMY ELLISON) Discharge <JEREMY ELLISON - Last Filed: 10/14/19 05:42> <JADE HERNANDEZ - Last Filed: 10/14/19 09:45> <ELVIA HERNANDEZ - Last Filed: 10/14/19 13:20> <JAYLEEN PICHARDO - Last Filed: 10/14/19 14:27> - Discharge Clinical Impression: Auditory hallucinations Salicylate poisoning Qualifiers: Encounter type: initial encounter Injury intent: undetermined intent Qualified Code(s): T39.094A - Poisoning by salicylates, undetermined, initial encounter Condition: Stable Disposition: HOME, SELF-CARE Instructions: Drug Toxicity ([facility]) Additional Instructions: You have been evaluated by both medical and behavioral health teams for hallucinations. You have been deemed appropriate for discharge. You have been able to express yourself/wants/needs. While in the emergency department you received the following services/or had access to: Medical screening and assessment, nursing services, dietary services, pharmacological services, one-on-one counseling and/or psychotherapy, environmental services, and continuous observation by a patient safety teacher. If you have concerns regarding mental health issues you are recommended to establish services with an outpatient agency. You have been provided a local resource sheet. Hallucinations You seem to be having hallucinations. Hallucinations are seeing, hearing, or feeling things that don't exist. These symptoms commonly occur with drug abuse and schizophrenia. Drugs like PCP, LSD, MDMA, peyote, and "psychedelic mushrooms" can cause frightening hallucinations. Users of methamphetamine or crack cocaine often see and feel bugs crawling on their skin. Patients with schizophrenia may hear voices that no one else can hear. The delusions of schizophrenia often involve conspiracies or relationships that are not real. When symptoms are due to drug abuse, the mental state usually improves as the drug wears off. Someone you trust should be with you until you are better, to protect you and calm your fears. Tranquilizer medicine is helpful at controlling hallucinations, anxiety, and deluded thoughts. Get a proper diet and enough sleep. Most patients do very well when they get proper medical treatment and social support. You should return at once if your symptoms get worse, if you are having suicidal thoughts or thoughts about hurting others, or if you feel that you are in danger. Follow-Up: You are recommended to follow up with a local outpatient mental health provider for ongoing care and treatment such as therapy and medication management. You have a local resource sheet which includes mobile crisis numbers. If your symptoms persist or worsen contact your physician immediately, utilize mobile crisis or return to the emergency department. Referrals: [facility] [Outside] - Follow up as needed [facility] [Outside] - Follow up as needed [facility] [Outside] - Follow up as needed (Can call for appointments [phone]) [facility] [Outside] - Follow up as needed (Walk in Saturday-Saturday 8:00AM-4:30 PM) [facility] [Outside] - Follow up as needed (Walk in Saturday- Saturday 8:00AM-Noon)
[2019-10-14 02:04] LABS: ABSOLUTE BASOPHILS # (AUTO) 0.1 10^3/uL (0.0-0.2); ABSOLUTE LYMPHOCYTES (AUTO) 2.4 10^3/uL (0.5-4.7); ABSOLUTE MONOCYTES (AUTO) 0.7 10^3/uL (0.1-1.4); ABSOLUTE NEUT (AUTO) 6.5 10^3/uL (1.7-8.2); BASOPHILS % (AUTO) 0.8 % (0-2); EOSINOPHILS % (AUTO) 0.3 % (0-6); HEMATOCRIT 37.5 % (36.0-47.0); HEMOGLOBIN 12.3 g/dL (12.0-15.5); LYMPHOCYTES % (AUTO) 24.8 % (13-45); MEAN CORPUSCULAR HEMOGLOBIN 29.5 pg (27.0-33.4); MEAN CORPUSCULAR HGB CONC 32.8 g/dL (32.0-36.0); MEAN CORPUSCULAR VOLUME 90 fl (80-97); MONOCYTES % (AUTO) 7.1 % (3-13); PLATELET COUNT 359 10^3/uL (150-450); RED BLOOD COUNT 4.17 10^6/uL (3.72-5.28); TOTAL CELLS COUNTED % (AUTO) 100 %; WHITE BLOOD COUNT 9.7 10^3/uL (4.0-10.5)
[2019-10-14 02:13] LABS: ALBUMIN 4.1 g/dL (3.5-5.0); ALKALINE PHOSPHATASE 63 U/L (38-126); ANION GAP 8 (5-19); ASPARTATE AMINO TRANSFERASE 15 U/L (14-36); BILIRUBIN,TOTAL 0.2 mg/dL (0.2-1.3); BLOOD UREA NITROGEN 12 mg/dL (7-20); CALCIUM 9.4 mg/dL (8.4-10.2); CARBON DIOXIDE 24 mmol/L (22-30); CHLORIDE 108 mmol/L (98-107); GLUCOSE 93 mg/dL (75-110); TOTAL PROTEIN 6.9 g/dL (6.3-8.2)
[2019-10-14 02:20] LABS: ACETAMINOPHEN < 10 ug/mL (10-30); ALCOHOL < 10 mg/dL (NONE DETECTED)
[2019-10-14 02:30] LABS: SALICYLATE 36.7 mg/dL (2.0-20.0)
[2019-10-14] MEDS ORDERED: RINGERS SOLUTION,LACTATED 1,000 ML IV ONE ×2 (05:05→06:12)
[2019-10-14] MEDS ORDERED: NORMAL SALINE 1000 ML 1,000 ML IV ONE (05:05)
[2019-10-14 05:38] LABS: VENOUS BLOOD BASE EXCESS 0.4 mmol/L; VENOUS BLOOD HCO3 25.5 mmol/L (20-32); VENOUS BLOOD PCO2 42.9 mmHg (35-63); VENOUS BLOOD PH 7.39 (7.30-7.42)
[2019-10-14 05:50] LABS: ANION GAP 5 (5-19); BLOOD UREA NITROGEN 11 mg/dL (7-20); CALCIUM 9.2 mg/dL (8.4-10.2); CARBON DIOXIDE 25 mmol/L (22-30); CHLORIDE 110 mmol/L (98-107); GLUCOSE 88 mg/dL (75-110)
[2019-10-14 05:52] LABS: ACETAMINOPHEN < 10 ug/mL (10-30)
[2019-10-14 06:07] LABS: SALICYLATE 32.8 mg/dL (2.0-20.0)
[2019-10-14] MEDS ORDERED: PHYTONADIONE 5 MG TABLET PO ONE (06:11)
--- NOTE | 2019-10-14 07:12 | ER Document Report ---
Doctor's Note Notes: 10/14/19 06:58 Met with Patient who was lying down. She reported she has been "hearing voices all the time" for the past 5 years. She reported the voices are both male and female, she can hear what they say but said "I don't know" when asked for specifics. Patient stated she has no previous psychiatric or substance abuse h istory, no previous suicide attempts or inpatient psychiatric / substance abuse rehabilitation stays, yet stated she sees Dr. Oro, a psychiatrist in [place] and is prescribed Seroquel and Remeron at unknown dosages. She reported she also takes Xanax 10 mg (?) and oxycodone 30 mg(?) 6 times per day as needed for anxiety and back pain prescribed by Dr. Guillen also of [place]. She was unable to tell me what kind of physician Dr. Guillen is or why he would be prescribing xanax if she is seeing a psychiatrist. When advised it was very unusual for a 50/51 year old to suddenly start experiencing visual hallucinations she just shrugged her shoulders. When asked if her physicians or anyone had ever told her that, she said "no." Patient denied abusing any substances. She reported living with her , having a good relationship and feeling safe at home. She also stated she lives in [place] but is from [facility], hence her physicians being in [facility]. Patient was oriented to person, place, time, and circumstance. Mood was guarded and irritable, with mood-congruent affect. She reported auditory hallucinations but her presentation was inconsistent with known behaviors and observations of people with psychosis. For example, thought processes were logical, linear, and rational. Conversational speech was within normal limits for rate, tone, and prosody. Eye contact was well maintained. When asked if she felt safe, she stated "yes." She provided no evidence of paranoia, restlessness, or discomfort. Attention and concentration was within normal limits. Insight, judgment, and impulse control was poor to fair as evidenced by her mild to moderate verbal outburst when asked how we could help her, and she responded "give me something for my nerves and my back pain." When advised the ED docs do not tend to prescribe addictive medication such as xanax and oxycodone, she yelled, "then just get the fuck away from me, you can't help me, go the fuck away." Clinical Presentation: Malingering psychosis for secondary gain Drug seeking benzodiazepines and opiates Irritable Guarded Possibly seeking medications for someone since was unsure of medications dosage s. Review of the [facility] reveals the Patient last received Xanax on 08.15.2019 at .25 mg, 30 pills for 15 days. prior to that she received Valium 10 mg, 60 pills for 30 days on 06.29.2019. Since May 2018, the Patient has used 7 different providers to prescribe her valium, and she received hydrocodone just one time in that same timeframe. Impression/Plan: Patient is clear from acute psychiatric services and rescinded from her IVC Petition. Patient is not being honest regarding her history and does not demonstrate symptomatology consistent with known psychosis. She demonstrates behavior consistent with drug seeking attitudes. She is provided outpatient referrals for substance abuse services and highly recommended to follow through. ED Physician in agreement with disposition and recommendation.
--- NOTE | 2019-10-14 11:11 | EKG REPORT ---
SEVERITY:- BORDERLINE ECG - SINUS RHYTHM PROBABLE LEFT ATRIAL ABNORMALITY : Confirmed by: Katherine Boykin MD 14-Oct-2019 11:10:23
--- NOTE | 2019-10-14 11:11 | EKG REPORT ---
SEVERITY:- NORMAL ECG - SINUS RHYTHM : Confirmed by: Katherine Boykin MD 14-Oct-2019 11:10:20
[2019-10-14 13:23] LABS: BLOOD UREA NITROGEN 8 mg/dL (7-20); CHLORIDE 112 mmol/L (98-107); GLUCOSE 84 mg/dL (75-110); POTASSIUM 4.1 mmol/L (3.6-5.0)
[2019-10-14 13:31] LABS: CARBON DIOXIDE 24 mmol/L (22-30)
[2019-10-14 13:33] LABS: ANION GAP 3 (5-19)
[2019-10-14 13:39] LABS: URINE AMPHETAMINES SCREEN NEGATIVE; URINE BARBITURATES SCREEN NEGATIVE; URINE BENZODIAZEPINES SCREEN NEGATIVE; URINE MARIJUANA (THC) SCREEN NEGATIVE; URINE METHADONE SCREEN NEGATIVE; URINE PHENCYCLIDINE SCREEN NEGATIVE
[2019-10-14 13:42] LABS: APPEARANCE,URINE CLEAR; COLOR,URINE STRAW; GLUCOSE, URINE NEGATIVE (NEGATIVE)
[2019-10-14 13:43] LABS: ADD MANUAL MICROSCOPIC YES; BILIRUBIN,URINE NEGATIVE (NEGATIVE); KETONES,URINE NEGATIVE (NEGATIVE); LEUKOCYTE ESTERASE,URINE NEGATIVE (NEGATIVE); NITRITE,URINE NEGATIVE (NEGATIVE); PROTEIN,URINE NEGATIVE (NEGATIVE); URINE SPECIFIC GRAVITY 1.006; UROBILINOGEN,URINE NEGATIVE mg/dL (<2.0)
[2019-10-14 13:44] LABS: YEAST,URINE PRESENT
[2019-10-14 13:50] LABS: URINE COCAINE SCREEN NEGATIVE
[2019-10-14 15:23] VITALS: BP 102/62
== END 2019-10-14 15:22 | disposition home or self-care (01) ==
LOC: ER 23:11
DX: R44.0 Auditory hallucinations (principal); T39.094A Poisoning by salicylates, undetermined, initial encounter; X58.XXXA Exposure to other specified factors, initial encounter; J44.9 Chronic obstructive pulmonary disease, unspecified
CPT/HCPCS: 93005 ×2; 99284; 96360; 96361; 36415; 80307 ×4; 85025; 80053; 81001; 82803; 93010 ×2; J3490 ×2; J7120

== ENCOUNTER 2020-02-12 14:39 | Emergency (ER) | payer MEDICAID ==
[2020-02-12] MEDS ORDERED: NICOTINE 21 MG/24 HR PATCH.TD24 TD ONE (14:53)
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
[2020-02-12 15:18] LABS: ABSOLUTE LYMPHOCYTES (AUTO) 1.3 10^3/uL (0.5-4.7); ABSOLUTE MONOCYTES (AUTO) 0.7 10^3/uL (0.1-1.4); ABSOLUTE NEUT (AUTO) 6.2 10^3/uL (1.7-8.2); BASOPHILS % (AUTO) 0.4 % (0-2); EOSINOPHILS % (AUTO) 0.4 % (0-6); HEMATOCRIT 40.1 % (36.0-47.0); HEMOGLOBIN 13.5 g/dL (12.0-15.5); LYMPHOCYTES % (AUTO) 15.7 % (13-45); MEAN CORPUSCULAR HGB CONC 33.8 g/dL (32.0-36.0); MEAN CORPUSCULAR VOLUME 92 fl (80-97); MONOCYTES % (AUTO) 8.9 % (3-13); PLATELET COUNT 332 10^3/uL (150-450); RED BLOOD COUNT 4.36 10^6/uL (3.72-5.28); RED CELL DISTRIBUTION WIDTH 17.7 % (11.5-14.0); SEGMENTED NEUTROPHILS % (AUTO) 74.6 % (42-78); TOTAL CELLS COUNTED % (AUTO) 100 %; WHITE BLOOD COUNT 8.2 10^3/uL (4.0-10.5)
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
[2020-02-12 15:40] LABS: ALBUMIN 4.1 g/dL (3.5-5.0); ALKALINE PHOSPHATASE 69 U/L (38-126); ANION GAP 8 (5-19); ASPARTATE AMINO TRANSFERASE 19 U/L (14-36); BILIRUBIN,DIRECT 0.2 mg/dL (0.0-0.4); BILIRUBIN,TOTAL 0.2 mg/dL (0.2-1.3); CARBON DIOXIDE 26 mmol/L (22-30); CHLORIDE 104 mmol/L (98-107); POTASSIUM 3.3 mmol/L (3.6-5.0); SALICYLATE 15.5 mg/dL (2.0-20.0); TOTAL PROTEIN 6.6 g/dL (6.3-8.2)
[2020-02-12 15:42] LABS: ACETAMINOPHEN < 10 ug/mL (10-30); ALCOHOL < 10 mg/dL (NONE DETECTED); BLOOD UREA NITROGEN < 2 mg/dL (7-20)
[2020-02-12 15:44] LABS: GLUCOSE 58 mg/dL (75-110)
[2020-02-12 16:05] LABS: APPEARANCE,URINE CLEAR; BILIRUBIN,URINE NEGATIVE (NEGATIVE); COLOR,URINE STRAW; GLUCOSE, URINE NEGATIVE (NEGATIVE); KETONES,URINE NEGATIVE (NEGATIVE); LEUKOCYTE ESTERASE,URINE NEGATIVE (NEGATIVE); NITRITE,URINE NEGATIVE (NEGATIVE); PROTEIN,URINE 100 mg/dL (NEGATIVE); URINE SPECIFIC GRAVITY 1.004; UROBILINOGEN,URINE NEGATIVE mg/dL (<2.0)
[2020-02-12 16:23] LABS: URINE AMPHETAMINES SCREEN NEGATIVE; URINE BARBITURATES SCREEN NEGATIVE; URINE BENZODIAZEPINES SCREEN NEGATIVE; URINE COCAINE SCREEN NEGATIVE; URINE MARIJUANA (THC) SCREEN NEGATIVE; URINE METHADONE SCREEN NEGATIVE; URINE PHENCYCLIDINE SCREEN NEGATIVE
[2020-02-12] MEDS ORDERED: POTASSIUM CHLORIDE 10 MEQ TABLET.ER PO ONE (16:33)
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
[2020-02-12] MEDS ORDERED: HALOPERIDOL 5 MG TABLET PO ONE (18:48)
[2020-02-12] MEDS ORDERED: ACETAMINOPHEN 325 MG TABLET PO ONE (19:19)
--- NOTE | 2020-02-13 10:09 | EKG REPORT ---
SEVERITY:- ABNORMAL ECG - SINUS RHYTHM PROBABLE LEFT ATRIAL ABNORMALITY NONSPECIFIC T ABNORMALITIES, LATERAL LEADS : Confirmed by: Katherine Boykin MD 13-Feb-2020 10:08:39
[2020-02-13 11:13] VITALS: BP 117/67
[2020-02-13] MEDS ORDERED: ACETAMINOPHEN 325 MG TABLET PO ONE (13:45)
--- NOTE | 2020-02-13 17:00 | ER Document Report ---
Doctor's Note Notes: 02/13/20 17:00 Patient's vital signs and previous labs, diagnostic images reviewed. Reviewed mental health notes, nurse's notes and previous providers notes. VSS. Pt is in no distress at this time. Denies any SI or HI. General: A&Ox3. Answers questions appropriately. Heart: RRR Lungs: CTAB Psych: Flat affect A/P: Continue monitoring and rec's per MH. Normal diet continue to monitor
[2020-02-13] MEDS ORDERED: HALOPERIDOL 5 MG TABLET PO PRN (17:01)
[2020-02-13] MEDS ORDERED: BENZTROPINE MESYLATE 1 MG TABLET PO PRN (17:01)
[2020-02-13] MEDS ORDERED: DIVALPROEX SODIUM 250 MG TAB.SR.24H PO SCH (18:00)
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
== END 2020-02-13 18:00 | disposition other institution (70) ==
LOC: ER 14:39
DX: Z04.6 Encounter for general psychiatric examination, requested by authority (principal); F25.9 Schizoaffective disorder, unspecified; E87.6 Hypokalemia; F17.200 Nicotine dependence, unspecified, uncomplicated; J44.9 Chronic obstructive pulmonary disease, unspecified; Z91.14 Patient's other noncompliance with medication regimen
CPT/HCPCS: 93005; 99285; 36415; 82962; 80307 ×4; 84443; 85025; 80053; 81001; 93010; J3490 ×4